=== PATIENT | male | born 1955 | race Caucasian/White ===

== ENCOUNTER 2023-08-24 15:33 | Inpatient (IN) | payer OTHER, SELFPAY ==
[2023-08-24 12:00] VITALS: BP 144/87
--- NOTE | 2023-08-24 12:25 | ED.GENMED ---
History of Present Illness
General
Chief Complaint: Abdominal Symptoms
Source: patient
Exam Limitations: none
Time Seen by Provider: 08/24/23 12:18
Travel History
Have you had any contact with someone who has COVID-19?: No
Do you have any symptoms of coronavirus? Fever > 100 degrees, chills, cough, shortness of breath, sore throat, loss of taste or smell, muscle aches, or headache?: No
History of Present Illness
History of Present Illness:
68-year-old male presents with mid abdominal pain with vomiting onset this morning. He states he had a bloody Montse's and a cheese steak for dinner last night and developed abdominal pain. The pain does not radiate to his back. He denies any chest
pain or shortness of breath. No diarrhea. No blood in the stool. No fever. No other complaints at this time. No prior abdominal surgical history
Phy Exam
Physical Exam
Physical Exam:
General: Well-appearing male no acute respiratory distress
HEENT: Normocephalic atraumatic neck is supple
Heart: Regular rate and rhythm no murmurs
Lungs: Clear to auscultation bilaterally no wheezing
Abdomen: Soft, tender to the mid abdomen and right upper quadrants. No guarding or rebound normal bowel sounds nondistended no costovertebral angle tenderness
Extremities: No cyanosis or edema
Skin: Warm no rashes
Course
Orders/Labs/Results
Orders:
Orders
08/24/23 12:24
0.9% Sodium Chloride 1000 ml [Nss] 1,000 ml IV BOLUS
Famotidine [Pepcid] 20 mg IV NOW STA
Ondansetron Injectable [Zofran] 4 mg IV NOW STA
US Abdomen Complete/Upper Urgent
Comment:
Reason For Exam: abdominal pain
08/24/23 12:30
Complete Blood Count/With Diff Urgent
Comprehensive Metabolic Panel Urgent
Lipase Urgent
08/24/23 13:16
0.9% Sodium Chloride 1000 ml [Nss] 1,000 ml IV BOLUS
HYDROmorphone [Dilaudid] 1 mg IV NOW STA
Abnormal Lab Results
08/24/23
12:30
WBC 17.9 H 10^3/uL
(4.8-10.8)
RDW 15.9 H %
(11.5-14.5)
Abs Immat Gran (auto) 0.2 H 10^3/uL
(0-0.05)
Absolute Neuts (auto) 16.7 H 10^3/uL
(1.4-6.5)
Absolute Lymphs (auto) 0.4 L 10^3/uL
(1.2-3.4)
Immature Gran % 0.8 H %
(0-0.5)
Neutrophils % 93.1 H %
(42.2-75.2)
Lymphocytes % 2.3 L %
(20.5-51.1)
BUN 27 H mg/dl
(9-20)
Glucose 176 H mg/dl
(70-99)
Total Bilirubin 3.6 H mg/dl
(0.2-1.3)
AST 240 H U/L
(17-59)
ALT 207 H U/L
(0-50)
Alkaline Phosphatase 554 H U/L
(38-126)
Lipase > 4000 H* U/L
(23-300)
08/24/23 12:30
08/24/23 12:30
Vital Signs
Initial and Last Documented VS:
Initial Vital Signs
Temp Pulse Resp BP Pulse Ox
97.7 F 117 18 144/87 97
08/24/23 12:00 08/24/23 12:00 08/24/23 12:00 08/24/23 12:00 08/24/23 12:00
Last Documented Vital Signs
Temp Pulse Resp BP Pulse Ox
97.7 F 100 16 160/69 94
08/24/23 12:00 08/24/23 13:22 08/24/23 13:22 08/24/23 13:22 08/24/23 13:22
MDM/Problems Addressed
Differential Diagnosis Includes:
Abdominal pain. Differential could include gastritis versus biliary colic versus pancreatitis versus viral illness
Check labs including lipase ultrasound ordered Zofran Pepcid fluids given.
*Critical Care Note
Total Time (30-74mins, 75-104mins- exclusive of procedures): Not Applicable
Update Note
Update Note:
Workup demonstrates white blood cell count of 17.9 bilirubin of 3.6 with transaminases elevated. The lipase is over 4000 as well. No signs of cholecystitis on all consider choledocholithiasis. Fluids ordered pain medicine ordered. GI aware admit
to hospital service
ED Attending Note
-
Portions of this chart may have been created with voice recognition software.� Occasional wrong word or��sound alike� substitutions may have occurred due to the inherent limitations of voice recognition software.
Discharge Plan
Departure
Patient Disposition: Admit
Date of Disposition: 08/24/23
Time of Disposition: 14:01
Admit to: Med/Surg and Telemetry
Presentation/result/management discussed w/ accepting MD/DO: Hospitalist
Discharge Problem:
Acute pancreatitis
Referrals:
Richard Burdick DO [Family Provider] -
Interventions
Interventions:
*Risk Screen - Suicide Last Done: 08/24/23 11:57
*General Assessment Last Done: 08/24/23 11:57
*Neglect/Abuse Screening Last Done: 08/24/23 11:57
*ED COVID-19 Vaccine History Last Done: 08/24/23 11:57
ZA-Ebckmk-Fupvulittf Assessment Last Done: 08/24/23 12:23
[2023-08-24] MEDS: ZOFRAN 4 MG IV (12:33)
[2023-08-24] MEDS: PEPCID 20 MG IV (12:33)
[2023-08-24] MEDS: NSS 1000 IV ×2 (12:34→14:24)
[2023-08-24 12:43] LABS: % Basophils 0.2 % (0-2); % Eosinophils 0.1 % (0-6); % Immature Granulocytes 0.8 % (0-0.5); % Lymphocytes 2.3 % (20.5-51.1); % Monocytes 3.5 % (1.7-9.3); % Neutrophils 93.1 % (42.2-75.2); Absolute Immature Granulocytes 0.2 10^3/uL (0-0.05); Absolute Lymphocytes 0.4 10^3/uL (1.2-3.4); Absolute Monocytes 0.6 10^3/uL (0.1-0.6); Absolute Neutrophils 16.7 10^3/uL (1.4-6.5); Hematocrit 44.1 % (39.0-52.0); Hemoglobin 15.3 g/dL (13.0-18.0); Mean Corp Hgb Conc. 34.7 g/dL (33.0-37.0); Mean Corpuscular Hgb 29.3 pg (27.0-31.0); Mean Corpuscular Volume 84.3 fL (80.0-94.0); Mean Platelet Volume 9.5 fL (7.4-10.4); Nucleated Red Blood Cells % 0 % (-); Platelet Count 162 10^3/uL (130-400); Red Blood Cell Count 5.23 10^6/uL (4.70-6.10); Red Cell Dist. Width 15.9 % (11.5-14.5); White Blood Cell Count 17.9 10^3/uL (4.8-10.8)
[2023-08-24 12:57] LABS: ALT (SGPT) 207 U/L (0-50); AST (SGOT) 240 U/L (17-59); Albumin 4.2 g/dl (3.5-5.0); Alkaline Phosphatase 554 U/L (38-126); Blood Urea Nitrogen 27 mg/dl (9-20); Calcium 8.9 mg/dl (8.4-10.2); Carbon Dioxide 23 mmol/L (22-30); Chloride 107 mmol/L (98-107); Glucose 176 mg/dl (70-99); Potassium 4.3 mmol/L (3.5-5.1); Sodium 141 mmol/L (135-145); Total Bilirubin 3.6 mg/dl (0.2-1.3); Total Protein 7.5 g/dl (6.3-8.2); eGFR > 60.00
[2023-08-24 13:11] LABS: Lipase > 4000 U/L (23-300)
[2023-08-24 13:22] VITALS: BP 160/69
--- NOTE | 2023-08-24 15:14 | HPS.HSE ---
Family Physician
-
Family Physician: Richard Burdick
Chief Complaint
-
abdominal pain
History of Present Illness
68-year-old male with past medical history of hypertension, arthritis, COPD came to the hospital with abdominal pain and nausea vomiting. Patient's symptoms started this morning. Per patient he went to the restaurant overnight and had 2 drinks of
bloody Montse along with cheese steak. He then started developing abdominal pain. Denies any fever/chills. Denies any chest pain, shortness of breath.
Medical History
Past Medical History
Past Medical History: Reports COPD, HTN, Hypercholesterolemia and Other (Osteoarthritis)
Past Surgical History: Reports None
Social History
Tobacco: Non-smoker
Alcohol: Occasional
Drug: None
Family History
Family History: Not pertinent
Allergies / Home Medications
Allergies reflects when Allergies were last updated in [facility].
Home Medications with original date entered in [facility]
Allergy/Medication List:
Allergies
Allergy/AdvReac Type Severity Reaction Status Date / Time
No Known Allergies Allergy Verified 08/24/23 11:57
Home Medications
albuterol sulfate 90 mcg/actuation aerosol inhaler (ProAir HFA) 2 puff inhalation R QIDPRN PRN sob 08/24/23
atorvastatin 10 mg tablet (Lipitor) 10 mg PO QPM 08/24/23
fluticasone fur. 200 mcg-umeclid 62.5 mcg-vilant 25 mcg inhalat.powder (Trelegy Ellipta) 1 inh inhalation R DAILY 08/24/23
ibuprofen 200 mg tablet (Advil) 400 mg PO DAILY 08/24/23
ibuprofen 200 mg tablet (Advil) 600 mg PO HS 08/24/23
lisinopril 10 mg tablet 10 mg PO DAILY 08/24/23
Review of Systems
-
History Source: Patient
A 12 point ROS was completed and negative except as noted: Yes
Abdomen/GI: Reports Abdominal Pain, Nausea and Vomiting
Physical Exam
Vital Signs
Vital Signs
Temp Pulse Resp BP Pulse Ox
97.7 F 100 16 160/69 94
08/24/23 12:00 08/24/23 13:22 08/24/23 13:22 08/24/23 13:22 08/24/23 13:22
Physical Exam
General: Well Nourished and No Apparent Distress
HEENT: Anicteric and Moist mucous membranes
Respiratory: Clear and Non Labored Respirations; No Wheezes
Cardiac: S1/S2, Regular Rhythm and Tachycardia
Breast: Deferred by me
GI: Soft, Non Distended and Tender
Rectal: Deferred by Provider
Genito-urinary: No Nguyen
Musculoskeletal: No Edema
Neuro: Awake, Alert, Oriented and AO x 3
Psych: Calm and Intact Judgment/Insight
Laboratory Results
-
08/24/23 12:30
08/24/23 12:30
Laboratory Results
Total Bilirubin 3.6 mg/dl (0.2-1.3) H 08/24/23 12:30
AST 240 U/L (17-59) H 08/24/23 12:30
ALT 207 U/L (0-50) H 08/24/23 12:30
Alkaline Phosphatase 554 U/L (38-126) H 08/24/23 12:30
Lipase > 4000 U/L (23-300) H* 08/24/23 12:30
Data Reviewed
-
Lab Data: Labs Reviewed by me and Discussed with Patient
Impression/Plan
-
Abdominal pain, nausea vomiting likely secondary to pancreatitis
Suspect also related however could also be from NSAIDs, alcohol
Suspect sepsis (leukocytosis, tachycardia) secondary to pancreatitis
Concern for obstructive stone
Start lactated Ringer's
N.p.o.
Check MRI/MRCP
GI consult
Ultrasound noted with gallstones. No signs of cholecystitis and biliary dilation
Check EKG for QTc
Zofran
Lipase elevated
Check direct bili
Check blood culture, start antibiotics
History of hypertension
Hold lisinopril
Hydralazine as needed
Osteoarthritis
Hold ibuprofen, per patient he takes about 1200 mg Advil daily.
COPD
Not in exacerbation
Continue with home inhaler
Hyperlipidemia
Hold statin
DVT ppx
Lovenox
Full code
I spent a total of 78 minutes with the patient or on the floor. More than 50% of this time involved counseling and coordination of care.
[2023-08-24 15:23] VITALS: BP 158/88
[2023-08-24] MEDS: ZOSYN 50 IV ×2 (16:28→22:23)
--- NOTE | 2023-08-24 16:31 | CON.GI ---
Addendum entered and electronically signed by Lana Daly MD 08/24/23 19:19:
I saw and examined the patient.
The COMMUNICATION AND OUTREACH MANAGER or PA's note was reviewed and I agree with the note.
Comment: 68-year-old male past medical history as below here with nausea, vomiting, diarrhea, fevers for 3 to 4 weeks, worse this morning after having cheese steak and bloody Montse last night he was having ongoing vomiting. Found to have a white
blood cell count 17.9, lipase more than 4000, bilirubin 3.6, direct bilirubin 2.7, AST 240, ALT 207, alk phos 554, abdominal imaging with cholelithiasis without cholecystitis, fatty liver, splenomegaly. This is all consistent with likely biliary
pancreatitis possibly worsened with alcohol. He denies any regular alcohol use. I suspect the pain he was having the last 3 or 4 weeks was related to biliary colic. There is concern as well about cholangitis given the history of fever,
leukocytosis, elevated bilirubin.
Agree with broad-spectrum antibiotics, IV fluids which I increased lactate Ringer's to 250, monitor I's and O's, n.p.o., MRI with MRCP pending to evaluate for stone, blood cultures pending. Will need surgery consult eventually as well as will need
cholecystectomy. Fatty liver workup outpatient.
Please note pain is due to pancreatitis/biliary dz - no indication for EGD as noted below.
Original Note:
Consultation
-
Date/Time Consultation Requested: 08/24/23 1335
Date/Time Consultation Performed: 08/24/23 1630
Requesting Provider: Dr. Price
Performing Provider: Dr. Daly / Natalie Rich PA-C
Reason for Consultation: pancreatitis
Medical History
Chief Complaint / HPI
Chief Complaint: abdominal pain
History of Present Illness:
Vipul is a 68 year old male with a past medical history of HTN, hyperlipidemia, COPD, arthritis and fatty liver who complained of abdominal pain this morning, with nausea and vomiting. He vomited 4 times; no hematemesis or coffee grounds emesis.
No fever, chills. He drank 2 Bloody Montse's and ate a cheesesteak last night. Labs in the ER show lipase >4000 with elevated LFTs (AST 240, ALT 207, alk phos 554, total bili 3.6, direct bili 2.7). He does admit that he has had mildly elevated LFTs in
the past and has been told he had fatty liver. CBC shows leukocytosis with WBC count 17.9, Hgb 15.3, MCV 84.3, platelets 162. Blood cultures drawn, pending. Imaging studies in the ER include abdominal ultrasound which showed gallstones without
evidence of acute cholecystitis, no intra or extrahepatic biliary ductal dilatation, CBD measures 5mm, and pancreas not visualized on US due to overlying bowel gas. Fatty liver without focal liver lesion and splenomegaly also noted on US. MRI/MRCP
has been ordered to rule out CBD stone, results pending.
This is his first episode of pancreatitis. He denies any new medications. He does drink alcohol, 3-4 beers 1-2 times a week. He does not smoke and denies drug use. He does admit to regular NSAID use, 800mg a day of ibuprofen (200mg QID), for
arthritis pain. He gets occasional heartburn/reflux, and takes OTC Zantac PRN, which helps. He has never had an endoscopy. He has no bowel complaints, denies diarrhea, constipation, black or bloody stools. He had a colonoscopy 3-[address] [facility], reportedly normal. His family history is significant for his father had pancreatitis.
Past Medical History
Past Medical History: COPD, HTN, Hypercholesterolemia and Other (arthritis, fatty liver)
Past Surgical History: None
Social History
Tobacco: Non-Smoker
Alcohol: Other (up to 8 beers/week)
Drug: None
Family History
Family History: Other (father had pancreatitis. He denies any family history of GI malignancies.)
Allergies / Home Medications
Allergy/AdvReac Type Severity Reaction Status Date / Time
No Known Allergies Allergy Verified 08/24/23 11:57
Medication Instructions Recorded
albuterol sulfate 90 mcg/actuation 2 puff inhalation R QIDPRN PRN sob 08/24/23
aerosol inhaler (ProAir HFA)
atorvastatin 10 mg tablet (Lipitor) 10 mg PO QPM 08/24/23
fluticasone fur. 200 mcg-umeclid 1 inh inhalation R DAILY 08/24/23
62.5 mcg-vilant 25 mcg
inhalat.powder (Trelegy Ellipta)
ibuprofen 200 mg tablet (Advil) 400 mg PO DAILY 08/24/23
ibuprofen 200 mg tablet (Advil) 600 mg PO HS 08/24/23
lisinopril 10 mg tablet 10 mg PO DAILY 08/24/23
Review of Systems
-
History Source: Patient
All other systems: A 12 pt ROS was Negative except as stated above in HPI
Vital Signs
Temp Pulse Resp BP Pulse Ox
97.7 F 89 16 158/88 95
08/24/23 12:00 08/24/23 15:23 08/24/23 15:23 08/24/23 15:23 08/24/23 15:23
Physical Exam
Exam
General: Well Developed, Well Nourished and No Apparent Distress
Respiratory: Clear
Cardiac: Regular Rhythm
GI: Soft, Normal Bowel Sounds, Tender (+epigastric tenderness) and Distended
Skin: Warm, Dry and Rash
Neuro: AO x 3
Psych: Calm
Results
WBC 17.9 10^3/uL (4.8-10.8) H 08/24/23 12:30
Hgb 15.3 g/dL (13.0-18.0) 08/24/23 12:30
Hct 44.1 % (39.0-52.0) 08/24/23 12:30
MCV 84.3 fL (80.0-94.0) 08/24/23 12:30
Plt Count 162 10^3/uL (130-400) 08/24/23 12:30
Absolute Neuts (auto) 16.7 10^3/uL (1.4-6.5) H 08/24/23 12:30
Sodium 141 mmol/L (135-145) 08/24/23 12:30
Potassium 4.3 mmol/L (3.5-5.1) 08/24/23 12:30
Chloride 107 mmol/L (98-107) 08/24/23 12:30
Carbon Dioxide 23 mmol/L (22-30) 08/24/23 12:30
BUN 27 mg/dl (9-20) H 08/24/23 12:30
Creatinine 1.3 mg/dL (0.7-1.3) 08/24/23 12:30
Calcium 8.9 mg/dl (8.4-10.2) 08/24/23 12:30
Total Bilirubin 3.6 mg/dl (0.2-1.3) H 08/24/23 12:30
AST 240 U/L (17-59) H 08/24/23 12:30
ALT 207 U/L (0-50) H 08/24/23 12:30
Alkaline Phosphatase 554 U/L (38-126) H 08/24/23 12:30
Lipase > 4000 U/L (23-300) H* 08/24/23 12:30
Diagnostic Image Results:
US Abdomen, 08/24/23:
1.� Cholelithiasis without sonographic evidence for acute cholecystitis.
2. Increased echogenicity in the liver, compatible with underlying hepatocellular disease, which most commonly relates to fatty infiltration of the liver.
3. Splenomegaly.
Prior GI Procedures:
EGD: never
Colonoscopy: 3-4 years ago at [facility], reportedly normal
Assessment / Plan
-
68 year old male with HTN, hyperlipidemia, COPD, arthritis and fatty liver c/o abdominal pain with nausea and vomiting. He vomited 4 times; no hematemesis or coffee grounds emesis. No fever, chills. He drank 2 Bloody Montse's and ate a cheesesteak
last night. Labs in the ER show lipase >4000 with elevated LFTs (AST 240, ALT 207, alk phos 554, total bili 3.6, direct bili 2.7). He does admit that he has had mildly elevated LFTs in the past and has been told he had fatty liver. CBC shows
leukocytosis with WBC count 17.9, Hgb 15.3, MCV 84.3, platelets 162. Blood cultures drawn, pending. Imaging studies in the ER include abdominal ultrasound which showed gallstones without evidence of acute cholecystitis, no intra or extrahepatic
biliary ductal dilatation, CBD measures 5mm, and pancreas not visualized on US due to overlying bowel gas. Fatty liver without focal liver lesion and splenomegaly also noted on US. MRI/MRCP has been ordered to rule out CBD stone, results pending.
This is his first episode of pancreatitis. He denies any new medications. He does drink alcohol, 3-4 beers 1-2 times a week. He does not smoke and denies drug use. He does admit to regular NSAID use, 800mg a day of ibuprofen (200mg QID), for
arthritis pain. He gets occasional heartburn/reflux, and takes OTC Zantac PRN, which helps. He has never had an endoscopy. No dysphagia, odynophagia. He states he has lost about 40 pounds in the past 3.5 months, intentionally, with improved diet. He
has no bowel complaints, denies diarrhea, constipation, black or bloody stools. He had a colonoscopy 3-4 years ago at [facility], reportedly normal. His family history is significant for his father had pancreatitis.
Acute pancreatitis, possible etiologies include gallstones vs alcohol
-lipase >4000
-elevated LFTs, concern for possible CBD stone
-MRI/MRCP pending
-NPO
-IV fluids, lactated ringers ordered at 250ml/hr
-antiemetics and pain management as per hospitalist
Other etiologies of the upper abdominal pain including gastritis/PUD related to NSAID use, EtOH
-consider endoscopy, inpatient vs outpatient
Other medical problems managed as per hospitalist.
We will follow.
-
-
Thank you for consultation and allowing me to participate in the patient's care. Please call the [facility] extension specialist GI physician during the after hours with any questions or concerns.
[2023-08-24 16:35] LABS: Direct Bilirubin 2.7 mg/dl (0.0-0.4)
[2023-08-24 17:15] VITALS: BP 160/101; BMI 41.8
[2023-08-24] MEDS: LR 1000 IV (18:00)
[2023-08-24] MEDS: LOVENOX 40 MG SC (19:22)
[2023-08-24] MEDS: SYMBICORT 160/4.5 MCG INHALER 2 PUFF INH (20:15)
[2023-08-24] MEDS: DILAUDID 0.5 MG IV (20:25)
[2023-08-24 23:55] VITALS: BP 152/74
[2023-08-25] VITALS (7 sets, daily range): BP systolic 122–157; BP diastolic 62–98
[2023-08-25] MEDS: LR 1000 IV ×4 (00:40→19:19)
[2023-08-25] MEDS: DILAUDID 0.5 MG IV ×3 (00:43→10:13)
[2023-08-25] MEDS: ZOSYN 50 IV ×4 (04:27→22:27)
[2023-08-25] MEDS: SYMBICORT 160/4.5 MCG INHALER 2 PUFF INH ×2 (07:34→19:38)
[2023-08-25] MEDS: SPIRIVA RESPIMAT 2.5 MCG 2 PUFF INH (07:34)
[2023-08-25 08:38] LABS: % Basophils 0.1 % (0-2); % Eosinophils 0.1 % (0-6); % Immature Granulocytes 0.9 % (0-0.5); % Lymphocytes 2.7 % (20.5-51.1); % Monocytes 4.5 % (1.7-9.3); % Neutrophils 91.7 % (42.2-75.2); Absolute Immature Granulocytes 0.2 10^3/uL (0-0.05); Absolute Lymphocytes 0.6 10^3/uL (1.2-3.4); Absolute Neutrophils 20.5 10^3/uL (1.4-6.5); Hematocrit 42.3 % (39.0-52.0); Hemoglobin 13.7 g/dL (13.0-18.0); Mean Corp Hgb Conc. 32.4 g/dL (33.0-37.0); Mean Corpuscular Hgb 27.9 pg (27.0-31.0); Mean Corpuscular Volume 86.2 fL (80.0-94.0); Mean Platelet Volume 9.4 fL (7.4-10.4); Nucleated Red Blood Cells % 0 % (-); Platelet Count 131 10^3/uL (130-400); Red Blood Cell Count 4.91 10^6/uL (4.70-6.10); Red Cell Dist. Width 16.2 % (11.5-14.5); White Blood Cell Count 22.3 10^3/uL (4.8-10.8)
[2023-08-25 09:00] LABS: ALT (SGPT) 208 U/L (0-50); AST (SGOT) 146 U/L (17-59); Albumin 3.7 g/dl (3.5-5.0); Alkaline Phosphatase 453 U/L (38-126); Blood Urea Nitrogen 25 mg/dl (9-20); Calcium 8.1 mg/dl (8.4-10.2); Carbon Dioxide 23 mmol/L (22-30); Chloride 107 mmol/L (98-107); Estimated Creatinine Clearance 78 ml/min; Glucose 119 mg/dl (70-99); Potassium 3.9 mmol/L (3.5-5.1); Sodium 140 mmol/L (135-145); Total Bilirubin 4.3 mg/dl (0.2-1.3); Total Protein 6.7 g/dl (6.3-8.2); eGFR > 60.00
[2023-08-25 09:12] LABS: Lipase > 4000 U/L (23-300)
[2023-08-25] MEDS: ZESTRIL 10 MG PO (10:12)
--- NOTE | 2023-08-25 11:14 | W.PN.HOSP.TC ---
Today's Communication/Plan
-
monitor vitals
see plan
clears
CT abdomen
cw abx
monitor lipase
cw LR
Assessment / Plan
Assessment / Plan
General: Well Nourished and No Apparent Distress
HEENT: Anicteric and Moist mucous membranes
Respiratory: Clear and Non Labored Respirations; No Wheezes
Cardiac: S1/S2, Regular Rhythm and Tachycardia
Breast: Deferred by me
GI: Soft, Non Distended and Tender
Rectal: Deferred by Provider
Genito-urinary: No Nguyen
Musculoskeletal: No Edema
Neuro: Awake, Alert, Oriented and AO x 3
Psych: Calm and Intact Judgment/Insight
Abdominal pain, nausea vomiting likely secondary to pancreatitis
Suspect also related however could also be from NSAIDs, alcohol
Suspect sepsis (leukocytosis, tachycardia) secondary to pancreatitis
MRI without CBD stone; does concern for possible chronic or subacute cholecystitis with possible underlying mass; Surgery following; pending CT abdomen
cw lactated Ringer's
on clears
GI following
Zofran
Lipase elevated
direct bili high; elevated LFT's,alk phos
Check blood culture pending, cw antibiotics
monitor leukocytosis
History of hypertension
Hold lisinopril
Hydralazine as needed
Osteoarthritis
Hold ibuprofen, per patient he takes about 1200 mg Advil daily.
COPD
Not in exacerbation
Continue with home inhaler
Hyperlipidemia
Hold statin
DVT ppx
Lovenox
Full code
Anticipated Discharge: 24 - 48 hours
Subjective/Interval History
-
Date of Service: August 25, 2023
has nausea
Objective Data
-
Labs:
Laboratory Results
08/25/23
08:21
WBC 22.3 H
Hgb 13.7
Hct 42.3
Plt Count 131
Sodium 140
Potassium 3.9
Chloride 107
Carbon Dioxide 23
BUN 25 H
Creatinine 1.3
Glucose 119 H
Calcium 8.1 L
Total Bilirubin 4.3 H
AST 146 H
ALT 208 H
Alkaline Phosphatase 453 H
Vital Signs:
Vital Signs
Temp Pulse Resp BP Pulse Ox
98.7 F 94 18 135/77 95
08/25/23 07:39 08/25/23 10:12 08/25/23 07:39 08/25/23 10:12 08/25/23 07:39
I&O
08/24/23 08/25/23 08/26/23
06:59 06:59 06:59
Intake Total 0 / 0 2700 / 2700
Balance 0 / 0 2700 / 2700
--- NOTE | 2023-08-25 11:45 | W.PN.GI.CBS2 ---
Today's Communication / Plan
-
surgery c/s, adv to clears, trend lfts, ivf
Assessment / Plan
-
�68-year-old male past medical history as below here with nausea, vomiting, diarrhea, fevers for 3 to 4 weeks, worse this morning after having cheese steak and bloody Montse last night he was having ongoing vomiting.� Found to have a white blood cell
count 17.9, lipase more than 4000, bilirubin 3.6, direct bilirubin 2.7, AST 240, ALT 207, alk phos 554, abdominal imaging with cholelithiasis without cholecystitis, fatty liver, splenomegaly.� This is all consistent with likely biliary pancreatitis
possibly worsened with alcohol. He denies any regular alcohol use.� I suspect the pain he was having the last 3 or 4 weeks was related to biliary colic.� He has also lost 60 lb in 6 weeks (intentionally) and the rapid weight loss can account for
gallstones.
Underwent MRI/MRCP last pm: 'Mild acute uncomplicated interstitial edematous pancreatitis. Cholelithiasis with irregular gallbladder wall thickening/exophytic soft tissue and edema suspicious for neoplasm. Underlying acute cholecystitis not
definitely excluded. Consider initial further evaluation with dedicated HIDA scan if there is clinical concern for acute cholecystitis.'
Recommendations:
- I ordered strict I+O
- Continue IV fluids LR 250
- I advanced him to clear liquid diet
- Trend LFTs
- I d/w Dr. Cobb recommend surgery consult - I placed consult and d/w Dr. Arrieta
- Follow up blood cultures, suspect leukocytosis and fever due to pancreatitis
- Fatty liver work up outpatient
Subjective
Subjective
Date of Service: August 25, 2023
Pain better
Last pain meds 6am
Required 2 doses yesterday, then midnight and 6am
No output recorded
Objective
Data Reviewed
Laboratory Data:
Laboratory Results
08/25/23 08:21
08/25/23 08:21
Laboratory Results
Total Bilirubin 4.3 mg/dl (0.2-1.3) H 08/25/23 08:21
AST 146 U/L (17-59) H 08/25/23 08:21
ALT 208 U/L (0-50) H 08/25/23 08:21
Alkaline Phosphatase 453 U/L (38-126) H 08/25/23 08:21
Lipase > 4000 U/L (23-300) H* 08/25/23 08:21
Vital Signs and I&O:
Vital Signs
Temp Pulse Resp BP Pulse Ox
98.7 F 94 18 135/77 95
08/25/23 07:39 08/25/23 10:12 08/25/23 07:39 08/25/23 10:12 08/25/23 08:55
I&O
08/24/23 08/25/23 08/26/23
06:59 06:59 06:59
Intake Total 0 / 0 2700 / 2700
Balance 0 / 0 2700 / 2700
Physical Exam
Physical Exam
GI: Non Distended and Non Tender
--- NOTE | 2023-08-25 11:54 | CON.GS ---
Addendum entered and electronically signed by Angelito Arrieta MD 08/25/23 12:31:
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 Agree with documented consult as below.
Brief HPI
68-year-old male who states he was in his usual baseline state of health until this past June when he had a bout of postprandial epigastric/right upper quadrant abdominal pain. He states that he had been feeling well since this episode but
decided to change his dietary habits which have resulted in approximately 60 pound weight loss since. 2 days ago he developed a recurrent bout of abdominal pain initially left-sided but it migrated to the epigastrium and right upper quadrant.
Nausea and vomiting. A little bit before his symptoms or around the same time he began noticing dark tea colored urine but no change in his bowels. No fevers chills or sweats.
Past medical history notable for COPD, hypertension, hypercholesterolemia. He denies any past abdominal surgical history.
Afebrile, vital signs stable
No acute distress, awake alert oriented x 3.
Scleral icterus noted and mild jaundice of the skin.
Abdomen obese, soft, nondistended. Mild tenderness palpation epigastrium and right upper quadrant but no rebound rigidity or guarding. There is a palpable mass in the right upper quadrant at the costal margin likely corresponding to the region of
his gallbladder. Some tenderness over this area but negative Dubon's.
Laboratory testing notable for white blood cell count of 22.3, hemoglobin is 13.7. Platelet count normal 131. Lipase remains greater than 4000. Bilirubin 4.3 with direct 2.7. AST ALT and alkaline phosphatase all elevated as well.
Ultrasound imaging personally reviewed identifying gallstones, no biliary ductal dilation. Common bile duct 5 mm. Fatty infiltration of the liver and splenomegaly. Imaging limited by patient's body habitus
MRI/MRCP also personally reviewed as well as radiologist report. There is diffuse and rather impressive thickening of the gallbladder and a exophytic masslike pattern particularly around the fundus and liver margin. No biliary ductal dilation.
Gallbladder is full of small stones. Pancreatic edema. Normal pancreatic duct.
Assessment/plan: 68-year-old male with acute pancreatitis, probable biliary mediated. Jaundice but within limits of MR imaging no evidence of choledocholithiasis. MR imaging suggestive of chronic or subacute cholecystitis with possible underlying
mass versus chronic inflammatory process. Gallbladder lumen appears completely occupied by stones.
Recommend further imaging with CT abdomen/pelvis with contrast to see if can better define inflammatory versus possible malignant process of the gallbladder.
Continue bowel rest, IV fluid hydration and supportive care for pancreatitis
Continue Zosyn for empiric biliary coverage
Repeat labs tomorrow
Further recommendations regarding management of gallstones and gallbladder pending CT imaging results. Based on MRI appearance cholecystectomy would likely be very challenging and high surgical risk for complication to surrounding viscera. If
there is ongoing concern for underlying malignancy may consider IR guided biopsy.
Reviewed with patient.
Will follow
Original Note:
Consultation
-
Date/Time Consultation Requested: 08/25/23 1114
Requesting Provider: Addy
Performing Provider: Jeffery Arrieta
Medical History
-
Chief Complaint: Abdominal pain
History of Present Illness:
This is a 68 yo male with a history of HTN, COPD and obesity who presented with abdominal pain through the ED to the upper abdomen. He notes that he has had intermittent and self resolving abdominal pain since June which has usually been short
in duration. He has been trying to loose weight and has been eating lightly with a reported weight loss of 60 pounds over the past 6 weeks. On the night prior to presentation, he did have a large meal of cheese steak with a bloody alyce and awakened
in the morning with left sided abdominal pain crossing over the the right. He notes nausea and vomiting with this pain causing him to present for evaluation through the ED. He notes that over the past few days he has had tea colored urine but denies
acholic stools. He does have noted jaundice and scleral icterus. He is currently more comfortable than on day of presentation without continued nausea. He has generalized mild tenderness to the LUQ and focal tenderness to the RUQ. He has been
afebrile. He does note that he has an upcoming prostate procedure/biopsy at [facility] and is eager to have this all dealt with prior to his planned procedure.
Past Medical History
Past Medical History: COPD, HTN and Hypercholesterolemia
Past Surgical History: None
Social History
Tobacco: Non-Smoker
Alcohol: Occasional
Family History
Family History: Reviewed & Not Pertinent
Allergies / Home Medications
Allergy/AdvReac Type Severity Reaction Status Date / Time
No Known Allergies Allergy Verified 08/24/23 11:57
Medication Instructions Recorded Confirmed Type
albuterol sulfate 90 mcg/actuation 2 puff inhalation R QIDPRN PRN sob 08/24/23 08/24/23 History
aerosol inhaler (ProAir HFA)
atorvastatin 10 mg tablet (Lipitor) 10 mg PO QPM High Cholesterol 08/24/23 08/24/23 History
fluticasone fur. 200 mcg-umeclid 1 inh inhalation R DAILY COPD 08/24/23 08/24/23 History
62.5 mcg-vilant 25 mcg
inhalat.powder (Trelegy Ellipta)
ibuprofen 200 mg tablet (Advil) 400 mg PO DAILY Pain 08/24/23 08/24/23 History
ibuprofen 200 mg tablet (Advil) 600 mg PO HS Pain 08/24/23 08/24/23 History
lisinopril 10 mg tablet 10 mg PO DAILY Blood Pressure 08/24/23 08/24/23 History
Review of Systems
-
History Source: Patient
All other systems: Negative unless noted
A 10 point review of systems was completed, and was negative except as per HPI.
Physical Exam
Vital Signs
Temp Pulse Resp BP Pulse Ox
98.7 F 94 18 135/77 95
08/25/23 07:39 08/25/23 10:12 08/25/23 07:39 08/25/23 10:12 08/25/23 08:55
08/24/23 08/25/23 08/26/23
06:59 06:59 06:59
Actual Weight 133.9 kg
Body Mass Index (BMI) 41.8
Lab Results
08/25/23 08:21
08/25/23 08:21
WBC 22.3 10^3/uL (4.8-10.8) H 08/25/23 08:21
Hgb 13.7 g/dL (13.0-18.0) 08/25/23 08:21
Hct 42.3 % (39.0-52.0) 08/25/23 08:21
Plt Count 131 10^3/uL (130-400) 08/25/23 08:21
Abs Immat Gran (auto) 0.2 10^3/uL (0-0.05) H 08/25/23 08:21
Neutrophils % 91.7 % (42.2-75.2) H 08/25/23 08:21
Physical Exam
General: Well Developed and No Apparent Distress
HEENT: Normocephalic and Moist Mucous Membranes
Respiratory: Non Labored Respirations
GI: Soft and Tender (BLUQ, focal tenderness to the mid RUQ)
Skin: Warm and Dry
Neuro: Awake, Alert and AO x 3
Psych: Calm
Data Reviewed
-
Ultrasound: Image Personally Visualized and interpreted, Report Reviewed by me, Discussed with Physician and Discussed with Patient
MRI: Image Personally Visualized and interpreted, Report Reviewed by me, Discussed with Physician and Discussed with Patient
Labs: Labs Reviewed by me, Discussed with Physician and Discussed with Patient
Assessment / Plan
-
68 yo male presenting with upper abdominal pain with n/v and jaundice. Being followed by GI for pancreatitis. Likely gallstone related although ETOH and malignancy remain in the differential. US reviewed with cholelithiasis noted. F/U MRCP with
abnormal gallbladder findings of irregular gallbladder wall thickening/exophytic soft tissue and edema and pancreatic edema, no choledocholithiasis noted on imaging. There is suspicion for neoplasm, however, unclear from MR imaging. Bilirubin with
slight rise since presentation. Increasing leukocytosis. Pain thus far well controlled/improved. No further n/v today. AFVSS.
Plan:
Check CT with contrast to further evaluate given abnormal MR findings
Trend labs
Continue IVF
Clear liquids as per GI
Analgesics/antiemetics prn
No immediate surgery planned given pancreatic inflammation and possible malignancy, further surgical recs pending CT study
[2023-08-25] MEDS: OMNIPAQUE 50 ML PO (13:02)
[2023-08-25] MEDS: ZOFRAN 4 MG IV (14:16)
[2023-08-25] MEDS: LOVENOX 40 MG SC (17:12)
[2023-08-25] MEDS: LR IV ×2 (17:14→18:40)
[2023-08-25] MEDS: LOPRESSOR 5 MG IV ×2 (18:25→20:21)
--- NOTE | 2023-08-25 18:33 | PTCARENOTE ---
Dr. Cobb made aware pt. HR in the 130s, and b/p 150/78. Order for EKG obtained. EKG tiger text to Dr. Cobb. Pt. asymptomatic, no c/o pain at this time. Orders placed for IV Lopressor and administered as ordered. Will pass on to on coming shift
nurse.
[2023-08-25] MEDS: TYLENOL 500 MG PO (20:25)
[2023-08-25 23:13] LABS: % Basophils 0.2 % (0-2); % Eosinophils 0.1 % (0-6); % Immature Granulocytes 1.3 % (0-0.5); % Lymphocytes 3.4 % (20.5-51.1); % Monocytes 5.3 % (1.7-9.3); % Neutrophils 89.7 % (42.2-75.2); Absolute Basophils 0.1 10^3/uL (0-0.2); Absolute Immature Granulocytes 0.3 10^3/uL (0-0.05); Absolute Lymphocytes 0.9 10^3/uL (1.2-3.4); Absolute Monocytes 1.5 10^3/uL (0.1-0.6); Absolute Neutrophils 24.3 10^3/uL (1.4-6.5); Hematocrit 37.5 % (39.0-52.0); Hemoglobin 12.6 g/dL (13.0-18.0); Mean Corp Hgb Conc. 33.6 g/dL (33.0-37.0); Mean Corpuscular Hgb 28.3 pg (27.0-31.0); Mean Corpuscular Volume 84.3 fL (80.0-94.0); Mean Platelet Volume 9.4 fL (7.4-10.4); Nucleated Red Blood Cells % 0 % (-); Platelet Count 138 10^3/uL (130-400); Red Blood Cell Count 4.45 10^6/uL (4.70-6.10); Red Cell Dist. Width 16.2 % (11.5-14.5); White Blood Cell Count 27.1 10^3/uL (4.8-10.8)
[2023-08-25 23:35] LABS: Blood Urea Nitrogen 23 mg/dl (9-20); Calcium 7.8 mg/dl (8.4-10.2); Carbon Dioxide 22 mmol/L (22-30); Chloride 102 mmol/L (98-107); Estimated Creatinine Clearance 78 ml/min; Glucose 128 mg/dl (70-99); Lactic Acid 1.2 mmol/L (0.7-2.0); Magnesium 1.2 mg/dl (1.6-2.3); Potassium 3.5 mmol/L (3.5-5.1); Sodium 136 mmol/L (135-145); eGFR > 60.00
[2023-08-25 23:45] LABS: NT-proBNP 2130 pg/ml
[2023-08-25] MEDS: MAGNESIUM SULFATE 100 IV (23:49)
--- NOTE | 2023-08-26 00:30 | PTCARENOTE ---
Pts BP 82/52 manual pt stating some dizziness. Repeat BP 92/52. House TV HOST aware. Order for NSS Bolus 500 ml/hr.
--- NOTE | 2023-08-26 02:20 | PTCARENOTE ---
1950: Pts HR 127-130 temp 99.7 BP 139/81- [place] [employer] notified order to place pt on telemetry, 500 mg tylenol and IV lopressor 5 mg given per order. Pts pulse ox 84% on RA- placed on 2 L pox came up to 92%. [place] [employer] aware.
2129: Pts HR continues 120-130s pulse ox 89-90% 2 L NC increased to 4 L. temp 100. [place] [employer] notified order for stat labs and portable cxr.
2299: pts magnesium 1.2- ordered 4 G IV magnesium. HR now in 90s.
[2023-08-26] MEDS: LR IV ×3 (03:36→10:15)
[2023-08-26] MEDS: ZOSYN 50 IV ×4 (03:39→21:39)
[2023-08-26 03:55] VITALS: BP 123/54
[2023-08-26] MEDS: LR 1000 IV ×3 (04:05→21:42)
--- NOTE | 2023-08-26 05:14 | W.PN.UPDATE ---
Update Note
Progress Note Update
late entry:
1944 change of shift RN reporting HR sustaining 120-130s (ST). BP wnl. T 99.7 pulse ox found to be mid 80s room air-->02 2l applied 91%. Pt w/o complaints.
reviewing chart- pt had had issues with increased HR previous shift and received lopressor iv which did not improve HR
Plan:
change from med surg to tele
Add lopressor iv with another dose now.
50mg tylenol po to assess if increase temp causing HR spike
2139 RN reports HR still 120-130. Temp now 100 BP, wnl, But 02 now 4L 92%
Again pt reporting no symptoms
HR likely elevated from temp elevation
Will check labs: cbc, bmp,mag, lactic, bnp, cxr.
Labs obtained around 0 : WBC increased 22-->27, mag 1.2 --> repleted with 4 g iv, BNP 2129 (no baseline and no chf hx, but receiving high rate ivf), lactic normal
start incentive talib for poss atelectasis from pancreatis and cholecystitis
HR now improved to 100, afebrile
pulse ox 97% on 4L--> wean as able
Consider iv lasix if needed, but with pancreatitis and lipase >4000 still needs high rate IVF for now
Though pt denies ETOH prob nurse does report some odd behaviors from pt--> urinating on floor, and poss slight tremors. Watch closely for potential ETOH withdrawal.
[2023-08-26 06:22] LABS: % Basophils 0.2 % (0-2); % Eosinophils 0.2 % (0-6); % Immature Granulocytes 1.4 % (0-0.5); % Lymphocytes 4.2 % (20.5-51.1); % Monocytes 5.3 % (1.7-9.3); % Neutrophils 88.7 % (42.2-75.2); Absolute Eosinophils 0.1 10^3/uL (0-0.7); Absolute Immature Granulocytes 0.3 10^3/uL (0-0.05); Absolute Lymphocytes 0.9 10^3/uL (1.2-3.4); Absolute Monocytes 1.1 10^3/uL (0.1-0.6); Absolute Neutrophils 19.1 10^3/uL (1.4-6.5); Hemoglobin 12.3 g/dL (13.0-18.0); Mean Corp Hgb Conc. 32.4 g/dL (33.0-37.0); Mean Corpuscular Hgb 27.8 pg (27.0-31.0); Mean Platelet Volume 9.4 fL (7.4-10.4); Nucleated Red Blood Cells % 0 % (-); Platelet Count 120 10^3/uL (130-400); Red Blood Cell Count 4.42 10^6/uL (4.70-6.10); Red Cell Dist. Width 16.1 % (11.5-14.5); White Blood Cell Count 21.6 10^3/uL (4.8-10.8)
[2023-08-26 06:37] LABS: ALT (SGPT) 126 U/L (0-50); AST (SGOT) 66 U/L (17-59); Alkaline Phosphatase 320 U/L (38-126); Blood Urea Nitrogen 21 mg/dl (9-20); Calcium 7.5 mg/dl (8.4-10.2); Carbon Dioxide 27 mmol/L (22-30); Chloride 103 mmol/L (98-107); Direct Bilirubin 1.6 mg/dl (0.0-0.4); Estimated Creatinine Clearance 78 ml/min; Glucose 129 mg/dl (70-99); Lipase 978 U/L (23-300); Potassium 3.6 mmol/L (3.5-5.1); Sodium 135 mmol/L (135-145); Total Bilirubin 2.7 mg/dl (0.2-1.3); Total Protein 5.8 g/dl (6.3-8.2); eGFR > 60.00
[2023-08-26 07:22] VITALS: BP 129/70
[2023-08-26] MEDS: ZESTRIL 10 MG PO (08:37)
[2023-08-26] MEDS: ZOFRAN 4 MG IV (09:01)
[2023-08-26] MEDS: SPIRIVA RESPIMAT 2.5 MCG 2 PUFF INH (09:20)
[2023-08-26] MEDS: SYMBICORT 160/4.5 MCG INHALER 2 PUFF INH ×2 (09:20→19:29)
--- NOTE | 2023-08-26 10:23 | W.PN.GS2 ---
Addendum entered and electronically signed by Angelito Arrieta MD 08/26/23 11:44:
Patient seen and examined with nurse practitioner agree with documented progress note with additions noted here.
Patient continues to deny significant symptoms although he is likely trying to be a bit stoic about the situation
Denies abdominal pain, denies nausea, denies shortness of breath
AF VSS
Sitting up at bedside, appears slightly dyspneic (although denies it)
Abdomen obese, minimal tenderness right upper quadrant, palpable mass right upper quadrant. No rebound rigidity or guarding
White blood cell count 21.6 from 27 overnight
Hemoglobin stable at 12.3
Slight thrombocytopenia with platelets of 120
Improving bilirubin of 2.7 and lipase now down to 978.
CT abdomen/pelvis 08/25/2023 images personally reviewed as well as radiologist report.
Gallbladder filled with radiopaque debris with surrounding phlegmonous inflammatory reaction extending into surrounding fatty tissue, area around duodenal bulb and adjacent transverse colon/transverse colon mesentery. Peripancreatic inflammatory
changes without fluid collection.
Assessment/plan: 68-year-old male with probable acute pancreatitis biliary mediated. Jaundice improving as well as lipasemia. MR negative for choledocholithiasis. Presumed passed gallstone or sludge/debris.
Background setting of severe subacute/chronic calculus cholecystitis. Phlegmonous inflammatory reaction extending from gallbladder into surrounding tissues. Cannot rule out underlying malignancy however imaging more suggestive of chronic
inflammatory/infectious process than malignancy.
Lengthy discussions with patient this a.m. as well as his daughter yesterday evening via phone call after CT imaging obtained. Advised of impression as outlined above and treatment recommendations below.
Due to severity of phlegmonous cholecystitis seen on imaging studies and untreated subacute/chronic presentation cholecystectomy at this time is anticipated to be quite challenging and of high surgical risk for injury to surrounding viscera
(duodenum/colon/portal structures/liver). Partial cholecystectomy would probably be only option surgically at this point and with open/laparotomy approach. Given this and overall clinical stability (no bacteremia, afebrile, no peritonitis on
examination) we discussed ideally continuing to treat medically with antibiotics, ongoing bowel rest for now and close observation.
Reviewed imaging with interventional radiologist confirming that given gallbladder is completely occupied by stones/debris/sludge percutaneous cholecystostomy tube likely not realistic option either and would be risky to place with good chance of
little clinical benefit.
Plan is therefore to treat as typically would for acute biliary pancreatitis with supportive care and antibiotic treatment of subacute/chronic phlegmonous cholecystitis.
With clinical improvement will consider dietary advancement over the next few days pending clinical course but hold on clear liquids for now.
Continue with Zosyn throughout hospitalization with plan to discharge on long-term course of Augmentin.
Ideally cholecystectomy would be deferred 4 to 6 weeks or possibly longer while on antibiotic treatment to allow for hopeful improvement in phlegmonous cholecystitis inflammatory process although even at a later date suspect high risk for need of
open cholecystectomy/challenging surgery. If clinical deterioration would obviously have to consider surgery sooner understanding surgical risks.
Any of the patient's concerns or questions were fully addressed as well as his daughters yesterday evening via phone call.
Will continue to follow
Original Note:
Today's Communication / Plan
-
Continue antibiotics and clear liquids
Assessment / Plan
-
Assessment: 68-year-old male with acute pancreatitis, probable biliary mediated.� Jaundice but within limits of MR imaging no evidence of choledocholithiasis.� MR imaging suggestive of chronic or subacute cholecystitis with possible underlying mass
versus chronic inflammatory process.� Gallbladder lumen appears completely occupied by stones. CT imaging obtained with findings of acute on chronic cholecystitis with reactive thickening of the duodenum. Some concern for malignancy remains but low
given clinical picture.
High risk for cholecystectomy at this point given degree of inflammation and concurrent pancreatitis. Discussed with IR physician, not good candidate for cholecystostomy as the gallbladder lumen is almost completely occupied by stones. Ideally,
would improve on antibiotics this admission with plan for outpatient cholecystectomy after completion of antibiotics/resolution of acute inflammatory process; however, if not improving may need more expedited surgical intervention
LFT's trending down now
Leukocytosis still significant but slight downtrend
Tachycardic overnight but afebrile. Now requiring O2
Plan:
Continue clear liquids
Trend labs
IV fluid hydration and supportive care for pancreatitis
Continue Zosyn for empiric biliary coverage
Medical management as per primary team
Imaging findings with patient and daughter.
Subjective Data
-
Date of Service: August 26, 2023
Patient seen and examined at bedside with Dr. Arrieta. Reports pain is improving. Events overnight noted. Denies n/v.
Objective Data
-
Intake and Output
08/25/23 08/26/23 08/27/23
06:59 06:59 06:59
Intake Total 0 / 0 2700 / 2700 1520 / 1520
Output Total 400 / 400
Balance 0 / 0 2700 / 2700 1120 / 1120
Intake:
Oral fluids 0 / 0 120 / 120
IV fluids (Total) 2500 / 2500 1200 / 1200
IV piggybacks 200 / 200 200 / 200
Output:
Urine, Voided 400 / 400
Other:
Number of approximated MODERATE 4
amounts of urine
How many times incontinent 1
SMALL amount urine
How many times incontinent 1
SATURATED amount urine
Vital Signs
Temp Pulse Resp BP Pulse Ox
97.3 F 96 16 129/70 97
08/26/23 07:22 08/26/23 08:37 08/26/23 07:22 08/26/23 08:37 08/26/23 08:35
Lab Results
08/26/23 05:54
08/26/23 05:54
Calcium 7.5 mg/dl (8.4-10.2) L 08/26/23 05:54
Magnesium 1.2 mg/dl (1.6-2.3) L 08/25/23 23:06
Total Bilirubin 2.7 mg/dl (0.2-1.3) H 08/26/23 05:54
Direct Bilirubin 1.6 mg/dl (0.0-0.4) H 08/26/23 05:54
AST 66 U/L (17-59) H 08/26/23 05:54
ALT 126 U/L (0-50) H 08/26/23 05:54
Alkaline Phosphatase 320 U/L (38-126) H 08/26/23 05:54
Total Protein 5.8 g/dl (6.3-8.2) L 08/26/23 05:54
Albumin 3.0 g/dl (3.5-5.0) L 08/26/23 05:54
Physical Exam
-
NAD, Ox3
ABD soft, ND, mild upper abdominal tenderness
Skin Mild jaundice, scleral icterus
--- NOTE | 2023-08-26 11:37 | W.PN.HOSP.TC ---
Addendum entered and electronically signed by Jaiden Cobb MD 08/26/23 11:48:
echo in am
Original Note:
Today's Communication/Plan
-
Monitor vitals
See plan
Decrease LR
wean o2 as tolerated
cw abx
Monitor leukocytosis
Monitor LFTs
Assessment / Plan
Assessment / Plan
General: Well Nourished and No Apparent Distress
HEENT: Anicteric and Moist mucous membranes
Respiratory: Clear and Non Labored Respirations; No Wheezes
Cardiac: S1/S2, Regular Rhythm and Tachycardia
Breast: Deferred by me
GI: Soft, Non Distended and Tender
Rectal: Deferred by Provider
Genito-urinary: No Nguyen
Musculoskeletal: No Edema
Neuro: Awake, Alert, Oriented and AO x 3
Psych: Calm and Intact Judgment/Insight
Abdominal pain, nausea vomiting likely secondary to pancreatitis
Suspect also related however could also be from NSAIDs, alcohol
Suspect sepsis (leukocytosis, tachycardia) secondary to pancreatitis
MRI without CBD stone; does concern for possible chronic or subacute cholecystitis with possible underlying mass; Surgery following; pending CT abdomen with c cholecystitis with sepsis patient for a developing cholecystoduodenal fistula. Surgery
following.
on clears
GI following
Zofran
Lipase elevated; slowly improving
blood culture NGTD, cw antibiotics
monitor leukocytosis
Monitor LFTs
Acute hypoxic respiratory insufficiency likely secondary to possible pneumonia
Chest x-ray consistent with pneumonia and possible pleural effusion
Continue with antibiotics
Elevated BNP
check echo
Hypomagnesemia
Repleted
History of hypertension
Hold lisinopril
Hydralazine as needed
Osteoarthritis
Hold ibuprofen, per patient he takes about 1200 mg Advil daily.
COPD
Not in exacerbation
Continue with home inhaler
Hyperlipidemia
Hold statin
DVT ppx
Lovenox
Full code
Anticipated Discharge: > 48 hours
Subjective/Interval History
-
Date of Service: August 26, 2023
denies pain
Objective Data
-
Labs:
Laboratory Results
08/26/23
05:54
WBC 21.6 H
Hgb 12.3 L
Hct 38.0 L
Plt Count 120 L
Sodium 135
Potassium 3.6
Chloride 103
Carbon Dioxide 27
BUN 21 H
Creatinine 1.3
Glucose 129 H
Calcium 7.5 L
Total Bilirubin 2.7 H
AST 66 H
ALT 126 H
Alkaline Phosphatase 320 H
Vital Signs:
Vital Signs
Temp Pulse Resp BP Pulse Ox
97.3 F 96 16 129/70 97
08/26/23 07:22 08/26/23 08:37 08/26/23 07:22 08/26/23 08:37 08/26/23 08:35
I&O
08/25/23 08/26/23 08/27/23
06:59 06:59 06:59
Intake Total 0 / 0 2700 / 2700 1520 / 1520
Output Total 400 / 400
Balance 0 / 0 2700 / 2700 1120 / 1120
[2023-08-26 11:57] VITALS: BP 132/79
--- NOTE | 2023-08-26 14:51 | W.PN.GI.CBS2 ---
Today's Communication / Plan
-
care per surgery/primary team, antibiotics, bowel rest
Assessment / Plan
-
�68-year-old male past medical history as below here with nausea, vomiting, diarrhea, fevers for 3 to 4 weeks, worse this morning after having cheese steak and bloody [place] last night he was having ongoing vomiting.� Found to have a white blood cell
count 17.9, lipase more than 4000, bilirubin 3.6, direct bilirubin 2.7, AST 240, ALT 207, alk phos 554, abdominal imaging with cholelithiasis without cholecystitis, fatty liver, splenomegaly.� This is all consistent with likely biliary pancreatitis
possibly worsened with alcohol. He denies any regular alcohol use.� I suspect the pain he was having the last 3 or 4 weeks was related to biliary colic.� He has also lost 60 lb in 6 weeks (intentionally) and the rapid weight loss can account for
gallstones.
Underwent MRI/MRCP 08/25: 'Mild acute uncomplicated interstitial edematous pancreatitis. Cholelithiasis with irregular gallbladder wall thickening/exophytic soft tissue and edema suspicious for neoplasm. Underlying acute cholecystitis not
definitely excluded. Consider initial further evaluation with dedicated HIDA scan if there is clinical concern for acute cholecystitis.'
CT 08/25: '1. Acute interstitial edematous pancreatitis.
2. Cholecystitis with suspicion for a developing cholecystoduodenal fistula, as above. Redemonstration of nodular soft tissue attenuation along the anterior-inferior aspect of the gallbladder wall, which again may be secondary to an underlying
gallbladder malignancy or potentially on the basis of a gangrenous, irregular gallbladder wall.'
Recommendations:
- appreciate surgery input, reviewed their recommendations
- antibiotics and diet per surgery
GI will sign off pls call with ?s
Subjective
Subjective
Date of Service: August 26, 2023
pain improving
Objective
Data Reviewed
Laboratory Data:
Laboratory Results
08/26/23 05:54
08/26/23 05:54
Laboratory Results
Magnesium 1.2 mg/dl (1.6-2.3) L 08/25/23 23:06
Total Bilirubin 2.7 mg/dl (0.2-1.3) H 08/26/23 05:54
AST 66 U/L (17-59) H 08/26/23 05:54
ALT 126 U/L (0-50) H 08/26/23 05:54
Alkaline Phosphatase 320 U/L (38-126) H 08/26/23 05:54
Lipase 978 U/L (23-300) H 08/26/23 05:54
Vital Signs and I&O:
Vital Signs
Temp Pulse Resp BP Pulse Ox
98.7 F 98 18 132/79 98
08/26/23 11:57 08/26/23 11:57 08/26/23 11:57 08/26/23 11:57 08/26/23 11:57
I&O
08/25/23 08/26/23 08/27/23
06:59 06:59 06:59
Intake Total 0 / 0 2700 / 2700 1520 / 1520
Output Total 400 / 400
Balance 0 / 0 2700 / 2700 1120 / 1120
Physical Exam
Physical Exam
GI: Non Distended and Non Tender
[2023-08-26 15:19] VITALS: BP 155/79
[2023-08-26] MEDS: LOVENOX 40 MG SC (17:20)
[2023-08-26 20:28] VITALS: BP 131/79
[2023-08-26 22:54] VITALS: BP 138/63
[2023-08-27 03:16] VITALS: BP 128/64
[2023-08-27] MEDS: LR 1000 IV (03:17)
[2023-08-27] MEDS: ZOSYN 50 IV ×4 (03:38→20:59)
[2023-08-27] MEDS: TUMS 2 TABLET PO ×2 (04:02→16:18)
[2023-08-27 06:00] VITALS: BMI 43.4
[2023-08-27 07:00] VITALS: BP 137/74
[2023-08-27 07:21] LABS: % Basophils 0.2 % (0-2); % Eosinophils 1.2 % (0-6); % Immature Granulocytes 1.9 % (0-0.5); % Lymphocytes 4.8 % (20.5-51.1); % Monocytes 6.2 % (1.7-9.3); % Neutrophils 85.7 % (42.2-75.2); Absolute Eosinophils 0.2 10^3/uL (0-0.7); Absolute Immature Granulocytes 0.3 10^3/uL (0-0.05); Absolute Lymphocytes 0.8 10^3/uL (1.2-3.4); Absolute Monocytes 1.1 10^3/uL (0.1-0.6); Absolute Neutrophils 14.7 10^3/uL (1.4-6.5); Hematocrit 34.7 % (39.0-52.0); Hemoglobin 11.5 g/dL (13.0-18.0); Mean Corp Hgb Conc. 33.1 g/dL (33.0-37.0); Mean Corpuscular Hgb 28.8 pg (27.0-31.0); Mean Platelet Volume 9.9 fL (7.4-10.4); Nucleated Red Blood Cells % 0 % (-); Platelet Count 123 10^3/uL (130-400); Red Blood Cell Count 3.99 10^6/uL (4.70-6.10); Red Cell Dist. Width 15.7 % (11.5-14.5); White Blood Cell Count 17.2 10^3/uL (4.8-10.8)
[2023-08-27] MEDS: SPIRIVA RESPIMAT 2.5 MCG 2 PUFF INH (08:05)
[2023-08-27] MEDS: SYMBICORT 160/4.5 MCG INHALER 2 PUFF INH ×2 (08:05→20:47)
[2023-08-27] MEDS: ZESTRIL 10 MG PO (08:40)
--- NOTE | 2023-08-27 08:47 | W.PN.HOSP.TC ---
Today's Communication/Plan
-
Will continue present course of antibiotics
Continue to monitor leukocytosis which continues to trend down
Will advance diet as per surgery recommendation
Continue to trend LFTs
As long as present course continues we will continue on long-term antibiotics till seen in follow-up by surgery for cholecystectomy sometime in the future
Assessment / Plan
Assessment / Plan
General: Well Nourished and No Apparent Distress
HEENT: Anicteric and Moist mucous membranes
Respiratory: Clear and Non Labored Respirations; No Wheezes
Cardiac: S1/S2, Regular Rhythm and Tachycardia
Breast: Deferred by me
GI: Soft, Non Distended and Tender
Rectal: Deferred by Provider
Genito-urinary: No Nguyen
Musculoskeletal: No Edema
Neuro: Awake, Alert, Oriented and AO x 3
Psych: Calm and Intact Judgment/Insight
Abdominal pain, nausea vomiting likely secondary to pancreatitis
Suspect also related however could also be from NSAIDs, alcohol
Suspect sepsis (leukocytosis, tachycardia) secondary to pancreatitis
MRI without CBD stone; does concern for possible chronic or subacute cholecystitis with possible underlying mass; Surgery following;
CT abdomen with c cholecystitis with sepsis patient for a developing cholecystoduodenal fistula.
Surgery following/per their assessment due to severity of the phlegmonous cholecystitis seen on imaging and untreated subacute chronic presentation a cholecystectomy would be challenging and to high risk given overall clinical stability no
bacteremia no peritonitis treatment will be continued medical management with antibiotics and ongoing bowel rest for now and close observation with ideally pursuing cholecystectomy in 4 to 6 weeks possibly longer on antibiotic course with plans for
long-term course of Augmentin
on clears and await advancement as per surgery
GI was following now signed off
Zofran
Lipase elevated; slowly improving today's pending
blood culture NGTD, cw antibiotics
monitor leukocytosis
Monitor LFTs
Acute hypoxic respiratory insufficiency likely secondary to possible pneumonia
Chest x-ray consistent with pneumonia and possible pleural effusion
Continue with antibiotics
Elevated BNP
check echo
Hypomagnesemia
Repleted
History of hypertension
Hold lisinopril
Hydralazine as needed
Osteoarthritis
Hold ibuprofen, per patient he takes about 1200 mg Advil daily.
COPD
Not in exacerbation
Continue with home inhaler
Hyperlipidemia
Hold statin
DVT ppx
Lovenox
Full code
Anticipated Discharge: > 48 hours
Subjective/Interval History
-
Date of Service: August 27, 2023
States he feels well he has tolerated clear liquids thus far he had a bowel movement this morning. Denies any abdominal pain.
Objective Data
-
Labs:
Laboratory Results
08/27/23
06:40
WBC 17.2 H
Hgb 11.5 L
Hct 34.7 L
Plt Count 123 L
Sodium Pending
Potassium Pending
Chloride Pending
Carbon Dioxide Pending
BUN Pending
Creatinine Pending
Glucose Pending
Calcium Pending
Total Bilirubin Pending
AST Pending
ALT Pending
Alkaline Phosphatase Pending
Vital Signs:
Vital Signs
Temp Pulse Resp BP Pulse Ox
97.8 F 76 20 137/74 96
08/27/23 07:00 08/27/23 08:08 08/27/23 08:08 08/27/23 07:00 08/27/23 08:08
I&O
08/26/23 08/27/23 08/28/23
06:59 06:59 06:59
Intake Total 6460 / 6460 5760 / 5760
Output Total 1050 / 1050
Balance 6460 / 6460 4710 / 4710
Review of Systems
-
History Source: Patient
All other systems: Reviewed and negative
Constitutional: Reports No Symptoms
Respiratory: Reports No Symptoms
Cardiac: Reports No Symptoms
Abdomen/GI: Reports No Symptoms
Physical Exam
-
General: Morbidly Obese
HEENT: Normocephalic
Respiratory: Clear to Auscultation
Cardiac: Regular Rhythm
GI: Soft and Tender (Diffusely/no peritoneal signs)
Musculoskeletal: No Edema
Neuro: Awake, Alert, Oriented, AO x 3 and No Motor Deficits
Psych: Calm
[2023-08-27 08:59] LABS: ALT (SGPT) 76 U/L (0-50); AST (SGOT) 34 U/L (17-59); Albumin 2.8 g/dl (3.5-5.0); Alkaline Phosphatase 239 U/L (38-126); Blood Urea Nitrogen 18 mg/dl (9-20); Calcium 7.3 mg/dl (8.4-10.2); Carbon Dioxide 26 mmol/L (22-30); Chloride 101 mmol/L (98-107); Estimated Creatinine Clearance 114 ml/min; Glucose 121 mg/dl (70-99); Lipase 265 U/L (23-300); Potassium 3.4 mmol/L (3.5-5.1); Sodium 133 mmol/L (135-145); Total Bilirubin 1.8 mg/dl (0.2-1.3); Total Protein 5.5 g/dl (6.3-8.2); eGFR > 60.00
--- NOTE | 2023-08-27 09:28 | W.PN.GS2 ---
Today's Communication / Plan
-
Okay to advance to a low-fat diet.
Continue to trend labs.
Respiratory insufficiency, will appreciate workup per primary.
IV fluid hydration and supportive care for pancreatitis
Continue Zosyn for empiric biliary coverage, will defer to primary versus ID for long-term/home antibiotic coverage of acute cholecystitis.
Will plan for a definitive cholecystectomy in 4 to 6 weeks.
Patient to follow-up with Dr. Arrieta
Assessment / Plan
-
Assessment: 68-year-old male with acute pancreatitis, probable biliary mediated.� Jaundice but within limits of MR imaging no evidence of choledocholithiasis.� MR imaging suggestive of chronic or subacute cholecystitis with possible underlying mass
versus chronic inflammatory process.� Gallbladder lumen appears completely occupied by stones. CT imaging obtained with findings of acute on chronic cholecystitis with reactive thickening of the duodenum. Some concern for malignancy remains but low
given clinical picture.
LFTs and leukocytosis improving.
Patient subjectively and clinically improving as well.
Plan:
Okay to advance to a low-fat diet.
Continue to trend labs.
Respiratory insufficiency, will appreciate workup per primary.
IV fluid hydration and supportive care for pancreatitis
Continue Zosyn for empiric biliary coverage, will defer to primary versus ID for long-term/home antibiotic coverage of acute cholecystitis.
Will plan for a definitive cholecystectomy in 4 to 6 weeks.
Patient to follow-up with Dr. Arrieta
Time Spent
Total Time Spent with Patient (in minutes): 25
Subjective Data
-
Date of Service: August 27, 2023
Interval Events:
No acute events overnight. Slept well. Pain Controlled. Denies Nausea/Vomiting, +bowel function. Tolerating diet.
Objective Data
-
Intake and Output
08/26/23 08/27/23 08/28/23
06:59 06:59 06:59
Intake Total 6460 / 6460 5760 / 5760
Output Total 1050 / 1050
Balance 6460 / 6460 4710 / 4710
Intake:
Oral fluids 2160 / 2160 1360 / 1360
IV fluids (Total) 4000 / 4000 4000 / 4000
IV piggybacks 300 / 300 400 / 400
Output:
Urine, Voided 1050 / 1050
Other:
Number of approximated MODERATE 4 5
amounts of urine
How many times incontinent 1
SMALL amount urine
How many times incontinent 1
MODERATE amount urine
How many times incontinent 1
SATURATED amount urine
Vital Signs
Temp Pulse Resp BP Pulse Ox
97.8 F 76 20 137/74 96
08/27/23 07:00 08/27/23 08:08 08/27/23 08:08 08/27/23 07:00 08/27/23 08:08
Lab Results
08/27/23 06:40
08/27/23 06:40
Calcium 7.3 mg/dl (8.4-10.2) L 08/27/23 06:40
Magnesium 1.2 mg/dl (1.6-2.3) L 08/25/23 23:06
Total Bilirubin 1.8 mg/dl (0.2-1.3) H 08/27/23 06:40
Direct Bilirubin 1.6 mg/dl (0.0-0.4) H 08/26/23 05:54
AST 34 U/L (17-59) 08/27/23 06:40
ALT 76 U/L (0-50) H 08/27/23 06:40
Alkaline Phosphatase 239 U/L (38-126) H 08/27/23 06:40
Total Protein 5.5 g/dl (6.3-8.2) L 08/27/23 06:40
Albumin 2.8 g/dl (3.5-5.0) L 08/27/23 06:40
Physical Exam
-
GENERAL/NEURO: Awake, Alert, no distress
CHEST: Unlabored breathing on NC
ABDOMEN: Soft, obese, mildly tender to palpation in the right upper quadrant, nondistended.
[2023-08-27 11:00] VITALS: BP 151/81
[2023-08-27] MEDS: ZOFRAN 4 MG IV (11:57)
[2023-08-27] MEDS: LR IV (11:57)
--- NOTE | 2023-08-27 13:48 | CM ---
Patient seen at bedside. Patient states he lives alone in a one story home. patient states that he has no DME and does not anticipate needing any VN or other supports. Patient PCP is Dr. Burdick and he uses the [facility] in [place] for pharmacy
needs. CM will continue to follow for discharge planning needs.
Plan; home with no needs at this time; watch for possible needs for antibiotics
[2023-08-27 15:00] VITALS: BP 145/67
[2023-08-27] MEDS: KCL 20 MEQ PO (15:14)
[2023-08-27] MEDS: LOVENOX 40 MG SC (17:43)
[2023-08-27 19:30] VITALS: BP 158/79
[2023-08-27 23:40] VITALS: BP 160/59
[2023-08-28 03:28] VITALS: BP 144/76
[2023-08-28] MEDS: ZOSYN 50 IV ×2 (04:02→09:23)
[2023-08-28 06:00] VITALS: BMI 43.2
[2023-08-28 07:00] VITALS: BP 157/88
[2023-08-28] MEDS: SPIRIVA RESPIMAT 2.5 MCG 2 PUFF INH (07:15)
[2023-08-28] MEDS: SYMBICORT 160/4.5 MCG INHALER 2 PUFF INH (07:15)
[2023-08-28 07:49] LABS: Hematocrit 35.6 % (39.0-52.0); Hemoglobin 11.6 g/dL (13.0-18.0); Mean Corp Hgb Conc. 32.6 g/dL (33.0-37.0); Mean Corpuscular Hgb 28.6 pg (27.0-31.0); Mean Corpuscular Volume 87.9 fL (80.0-94.0); Mean Platelet Volume 9.9 fL (7.4-10.4); Platelet Count 135 10^3/uL (130-400); Red Blood Cell Count 4.05 10^6/uL (4.70-6.10); Red Cell Dist. Width 15.3 % (11.5-14.5); White Blood Cell Count 13.3 10^3/uL (4.8-10.8)
[2023-08-28] MEDS: ZESTRIL 10 MG PO (07:58)
[2023-08-28 08:25] LABS: ALT (SGPT) 52 U/L (0-50); AST (SGOT) 30 U/L (17-59); Albumin 2.7 g/dl (3.5-5.0); Alkaline Phosphatase 208 U/L (38-126); Blood Urea Nitrogen 16 mg/dl (9-20); Calcium 7.6 mg/dl (8.4-10.2); Carbon Dioxide 27 mmol/L (22-30); Chloride 101 mmol/L (98-107); Estimated Creatinine Clearance 103 ml/min; Glucose 116 mg/dl (70-99); Potassium 3.5 mmol/L (3.5-5.1); Sodium 133 mmol/L (135-145); Total Bilirubin 1.3 mg/dl (0.2-1.3); Total Protein 5.4 g/dl (6.3-8.2); eGFR > 60.00
--- NOTE | 2023-08-28 09:52 | W.DS.TRANS ---
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
-
Discharge Instructions:
Discharge Diagnosis/Procedures Cholecystitis with sepsis
Chronic or subacute cholecystitis with possible
underlying mass
Acute pancreatitis
Acute hypoxic respiratory insufficiency likely
secondary to possible pneumonia
Resolving transaminitis
Diet Low Fat
Activity As tolerated
Driving Restrictions As prior to admission
Instructions:
Stand-Alone Forms:
Changes to Home Medications: Yes
Discharge Medications:
DC Medications w/original date entered in [facility]
albuterol sulfate 90 mcg/actuation aerosol inhaler (ProAir HFA) 2 puff inhalation R QIDPRN PRN sob 08/24/23
fluticasone fur. 200 mcg-umeclid 62.5 mcg-vilant 25 mcg inhalat.powder (Trelegy Ellipta) 1 inh inhalation R DAILY COPD 08/24/23
lisinopril 10 mg tablet 10 mg PO DAILY Blood Pressure 08/24/23
amoxicillin 875 mg-potassium clavulanate 125 mg tablet 1 tab PO BID Infection #30 tabs 08/28/23
Home Medication Changes
amoxicillin 875 mg-potassium clavulanate 125 mg tablet 1 tab PO BID Infection #30 tabs 08/28/23
Pending Results: No
Total time spent discharging patient (in min): 38
--- NOTE | 2023-08-28 10:04 | W.PN.GS2 ---
Today's Communication / Plan
-
-- Zosyn while in patient, Augmentin on DC for 3 weeks
-- OK for DC from surgical perspective
-- Patient to follow-up with Dr. Arrieta in 2-3 weeks
Assessment / Plan
-
Assessment: 68-year-old male with acute pancreatitis, probable biliary mediated.� Jaundice but within limits of MR imaging no evidence of choledocholithiasis.� MR imaging suggestive of chronic or subacute cholecystitis with possible underlying mass
versus chronic inflammatory process.� Gallbladder lumen appears completely occupied by stones. CT imaging obtained with findings of acute on chronic cholecystitis with reactive thickening of the duodenum. Some concern for malignancy remains but low
given clinical picture.
LFTs and leukocytosis improving.
Patient subjectively and clinically improving as well.
Plan:
LRD
Respiratory insufficiency, will appreciate workup per primary.
OK to HLIV
Zosyn while in patient, Augmentin on DC for 3 weeks
OK for DC from surgical perspective
Patient to follow-up with Dr. Arrieta in 2-3 weeks
Subjective Data
-
Date of Service: August 28, 2023
Feels significantly improved, and back to normal. No abdominal pain. No nausea or vomiting. No fevers.
Objective Data
-
Intake and Output
08/27/23 08/28/23 08/29/23
06:59 06:59 06:59
Intake Total 5760 / 5760 580 / 580
Output Total 1050 / 1050 875 / 875
Balance 4710 / 4710 -295 / -295
Intake:
Oral fluids 1360 / 1360 480 / 480
IV fluids (Total) 4000 / 4000 100 / 100
IV piggybacks 400 / 400
Output:
Urine, Voided 1050 / 1050 875 / 875
Other:
Number of approximated MODERATE 5 1
amounts of urine
How many times incontinent 1
SMALL amount urine
How many times incontinent 1
MODERATE amount urine
How many times incontinent 1
SATURATED amount urine
Vital Signs
Temp Pulse Resp BP Pulse Ox
97.5 F 86 18 155/87 94
08/28/23 07:00 08/28/23 09:06 08/28/23 09:06 08/28/23 07:58 08/28/23 09:06
Lab Results
08/28/23 06:40
08/28/23 06:40
Calcium 7.6 mg/dl (8.4-10.2) L 08/28/23 06:40
Magnesium 1.2 mg/dl (1.6-2.3) L 08/25/23 23:06
Total Bilirubin 1.3 mg/dl (0.2-1.3) 08/28/23 06:40
Direct Bilirubin 1.6 mg/dl (0.0-0.4) H 08/26/23 05:54
AST 30 U/L (17-59) 08/28/23 06:40
ALT 52 U/L (0-50) H 08/28/23 06:40
Alkaline Phosphatase 208 U/L (38-126) H 08/28/23 06:40
Total Protein 5.4 g/dl (6.3-8.2) L 08/28/23 06:40
Albumin 2.7 g/dl (3.5-5.0) L 08/28/23 06:40
Physical Exam
-
Gen: NAD
Abd: obese, soft, NT/ND, palpable GB, non-peritoneal
--- NOTE | 2023-08-28 10:05 | CM ---
MD entered order for discharge .
Spoke with patient he said he was ready for discharge.
Daughter Payal will drive him home.
Offered V he declined need .
PLAN Home no needs
--- NOTE | 2023-08-28 12:41 | W.DCSUMMARY ---
Discharge Summary
Discharge Data
Date of Admission: 08/24/23
Date of Discharge: 08/28/23
-
Pending Results: No
Hospital Course
Arthritis and COPD with morbid obesity presented with abdominal pain nausea vomiting symptoms started after having 2 drinks of a bloody Montse and a cheese steak. Thereafter developed increasing abdominal pain and was intractable/evaluation in the ED
noted initial concern for pancreatitis with a markedly elevated lipase liver transaminases and questionable cholelithiasis cholecystitis. Ultrasound showed multiple gallstones in the gallbladder with no signs of cholecystitis or biliary dilatation
initially. He was kept n.p.o. admitted started on lactated Ringer's and vigorous fluid volume replacement. Subsequent MRI imaging showed no evidence of any choledocho cholelithiasis however did show evidence of chronic versus subacute
cholecystitis with possible underlying mass effect versus chronic inflammatory process consultation with the surgical service felt that gallbladder lumen being completely occupied with stones felt a cone-down. Of anti-inflammatory treatment
including wide spectrum antibiotic coverage and no surgical intervention for at least several weeks was warranted.MRI did show a a interstitial edematous pancreatitis necessitating fluid resuscitation and eventual transition to a low-fat diet was
undertaken. Gastroenterology consultation no interventions recommended and agree with surgical assessment and the lack of findings to suggest any biliary tree involvement for choledocho cholelithiasis. Patient had significant elevated liver
transaminases at have trended toward normal with still a mildly elevated alkaline phosphatase of 200 lipase is normalized leukocytosis is normalizing after empiric coverage with Zosyn he will be transition to a course of Augmentin 875 mg twice a day
for next 3 weeks until which time general surgery will reevaluate possible intervention at that time for cholecystectomy. We called in a prescription for Augmentin 875 mg twice a day for 3 weeks to his local pharmacy with instructions also to take
a probiotic during course of therapy. And an incidental note the patient did manifest a questionable inflammatory infiltrate in her right basal lung possibly consistent with a pneumonic infiltrate did not change with treatment protocols and did not
have significant respiratory symptoms associated. A 2D echocardiogram was also performed during hospitalization showing an EF of 65% with no significant valvular disease nor left ventricular change in size or function was considered normal.
Discharge Plan
-
Patient Disposition: Home (Routine Discharge)
Discharge Diagnosis/Procedures: Cholecystitis with sepsis
Chronic or subacute cholecystitis with possible underlying mass
Acute pancreatitis
Acute hypoxic respiratory insufficiency likely secondary to possible pneumonia
Resolving transaminitis
Diet: Low Fat
Activity: As tolerated
Driving Restrictions: As prior to admission
Referrals:
Angelito Arrieta MD [Active] - in two weeks
Richard Burdick DO [Family Provider] - in less than 1 week
Prescriptions:
New
amoxicillin-pot clavulanate 875-125 mg tablet
1 tab PO BID Qty: 42 0RF
Continued
lisinopril 10 mg Tablet
10 mg PO DAILY
albuterol sulfate [ProAir HFA] 90 mcg/actuation Hfa Aerosol Inhaler
2 puff INHALATION R QIDPRN PRN (Reason: sob)
Trelegy Ellipta 200-62.5-25 mcg Blister With Device
1 inh INHALATION R DAILY
Discontinued
atorvastatin [Lipitor] 10 mg Tablet
10 mg PO QPM
ibuprofen [Advil] 200 mg Tablet
400 mg PO DAILY
ibuprofen [Advil] 200 mg Tablet
600 mg PO HS
Discharge Orders:
Discharge Patient (As Directed); Ordered 08/28/23
Ordered By: Dajuan Freed
[2023-08-28] MEDS: TUMS 2 TABLET PO (15:01)
== END 2023-08-28 16:20 | disposition home or self-care (01) | DRG 871 ==
LOC: 4 EAST ACU 15:33
PROVIDERS: Nurse Practitioner Family; Physician Assistant; ADMITTING PHYSICIAN Internal Medicine; ATTENDING PHYSICIAN Internal Medicine; CONSULT PHYSICIAN Internal Medicine Gastroenterology; CONSULT PHYSICIAN Surgery; EMERGENCY PHYSICIAN Emergency Medicine; FAMILY PHYSICIAN Family Medicine
DX: A41.9 Sepsis, unspecified organism (principal); J18.9 Pneumonia, unspecified organism; K85.90 Acute pancreatitis without necrosis or infection, unspecified; K80.10 Calculus of gallbladder with chronic cholecystitis without obstruction; Z68.41 Body mass index [BMI] 40.0-44.9, adult; M19.90 Unspecified osteoarthritis, unspecified site; J44.9 Chronic obstructive pulmonary disease, unspecified; E78.00 Pure hypercholesterolemia, unspecified; E83.42 Hypomagnesemia; R06.89 Other abnormalities of breathing; E66.01 Morbid (severe) obesity due to excess calories; R09.02 Hypoxemia
CPT/HCPCS: 71045; 74177; 74183; 76700; 80048; 80053; 82248; 83605; 83690; 83735; 83880; 85025; 85027; 87040; 93005; 93306; 94640; 96361; 96374; 96375; 99284; A9575; Q9967

== ENCOUNTER → 2023-10-02 12:17 | Outpatient (REF) | payer OTHER, SELFPAY | LOC: RAD 12:17 | PROVIDERS: ATTENDING PHYSICIAN Surgery; FAMILY PHYSICIAN Family Medicine | DX: K80.10 Calculus of gallbladder with chronic cholecystitis without obstruction (principal) | CPT/HCPCS: 74160; Q9967 ==

== ENCOUNTER 2023-10-25 12:53 | Inpatient (IN) | payer OTHER, SELFPAY ==
[2023-10-12 09:18] VITALS: BMI 40.3
[2023-10-12 09:58] LABS: Hematocrit 47.9 % (39.0-52.0); Mean Corp Hgb Conc. 33.4 g/dL (33.0-37.0); Mean Corpuscular Hgb 29.2 pg (27.0-31.0); Mean Corpuscular Volume 87.4 fL (80.0-94.0); Mean Platelet Volume 9.5 fL (7.4-10.4); Platelet Count 134 10^3/uL (130-400); Red Blood Cell Count 5.48 10^6/uL (4.70-6.10); Red Cell Dist. Width 15.4 % (11.5-14.5); White Blood Cell Count 10.9 10^3/uL (4.8-10.8)
[2023-10-12 10:25] LABS: ALT (SGPT) 24 U/L (0-50); AST (SGOT) 27 U/L (17-59); Albumin 4.4 g/dl (3.5-5.0); Alkaline Phosphatase 86 U/L (38-126); Blood Urea Nitrogen 29 mg/dl (9-20); Calcium 8.9 mg/dl (8.4-10.2); Carbon Dioxide 22 mmol/L (22-30); Chloride 108 mmol/L (98-107); Estimated Creatinine Clearance 74 ml/min; Glucose 86 mg/dl (70-99); Potassium 4.1 mmol/L (3.5-5.1); Sodium 138 mmol/L (135-145); Total Bilirubin 0.8 mg/dl (0.2-1.3); Total Protein 7.1 g/dl (6.3-8.2); eGFR > 60.00
--- NOTE | 2023-10-17 11:43 | CM ---
Patient is scheduled for a Robotic Cholecystectomy on 10/25/23. Spoke with patient prior to surgery via telephone to complete case management assessment and assess for discharge planning needs. Patient reports that he lives alone in a two story home.
There are no steps to enter and a flight of steps to the second floor. He currently functions independently. He has no DME and has never had VN services. He has a prescription plan and uses [facility].
PCP is Richard Burdick
Discussed discharge plans. Patient plans to return home at discharge. He states that he will have support from his daughters when he goes home. One of his daughters will stay with him. He has no discharge planning concerns at this time. Discussed
possible need for VN services and reviewed options. Patient does not feel services will be needed.
--- NOTE | 2023-10-19 14:44 | PTCARENOTE ---
Abn EKG reported to Dr. Bonilla, no actions requested.
[2023-10-25] VITALS (20 sets, daily range): BP systolic 28–142; BP diastolic 57–84; BMI 40.3; BMI 40.7
[2023-10-25] MEDS: TYLENOL 1000 MG PO (07:03)
[2023-10-25] MEDS: NORMOSOL-R 1000 IV (07:04)
--- NOTE | 2023-10-25 07:04 | HP.FOC2 ---
Focused History & Physical
Chief Complaint
HPI:
Chief Complaint: History of acute calculus cholecystitis
HPI / Indication for Planned Procedure: Patient is a 68-year-old male recently hospitalized this past August with postprandial epigastric and right upper quadrant pain and nausea/vomiting. Found to have diffuse thickening of gallbladder with
phlegmonous acute calculus cholecystitis. He was managed with IV fluids, bowel rest and supportive care utilizing empiric antibiotics and responded well. Interval imaging shows significant improvement in previous inflammatory changes of the
gallbladder. He presents today for scheduled cholecystectomy.
Relevant Past Medical History: Other (Asthma, hypertension, COPD, obesity with BMI 40.3)
Relevant Social History: Negative
Relevant Family History: Negative
Relevant Past Surgical History: Negative
Review of Systems
Review of Pertinent Systems: All Systems Negative
Medication
See Medication form for detailed medications: Yes
Medication List (including Herbals & OTC):
albuterol sulfate 90 mcg/actuation aerosol inhaler (ProAir HFA) 2 puff inhalation R QIDPRN PRN sob 08/24/23
fluticasone fur. 200 mcg-umeclid 62.5 mcg-vilant 25 mcg inhalat.powder (Trelegy Ellipta) 1 inh inhalation R DAILY COPD 08/24/23
lisinopril 10 mg tablet 10 mg PO DAILY Blood Pressure 08/24/23
atorvastatin 10 mg tablet 10 mg PO DAILY 10/18/23
Medications Reviewed: Yes
Allergies and Reactions
Patient has Allergies: No
Noted Allergies and Reactions:
Allergy/AdvReac Type Severity Reaction Status Date / Time
No Known Allergies Allergy Verified 10/25/23 06:49
Pertinent Physical Exam
All Other Systems: Negative
Head/Neck: Normal
Lungs: Normal
Heart: Normal
Abdomen: Normal
Extremities: Normal
Neurological: Normal
Diagnosis / Assessment
68-year-old male with recent history of acute phlegmonous calculus cholecystitis presenting for scheduled cholecystectomy
Plan / Procedure
Robotic assisted laparoscopic cholecystectomy
Anesthesia/Sedation to be done by Anesthesia Provider: Yes
--- NOTE | 2023-10-25 07:06 | W.SUR.PREOP ---
Pre-Operative Surgical Note
-
I have examined this patient prior to the performance of the scheduled procedure.
The patient's condition is unchanged from the time of the current History and
Physical and the patient is able to undergo the scheduled procedure.
[2023-10-25] MEDS: IC GREEN 2.5 MG IV (07:21)
--- NOTE | 2023-10-25 12:20 | W.IMMPOSTOP ---
Addendum entered and electronically signed by Angelito Arrieta MD 10/30/23 16:10:
#[id number]
Original Note:
Surgical Immed Post Op Note
-
Primary Surgeon: Berny
Assisting Surgeon: Lety LAO
Pre-op Diagnosis: Chronic calculus cholecystitis
Post-op Diagnosis: Chronic calculus cholecystitis
Procedure Performed: Robotic assisted laparoscopic converted to open fenestrated cholecystectomy
Anesthesia Type: GETA +0.25% Marcaine
Specimen / Cultures: Portions of gallbladder
Estimated Blood Loss: 50 mL
Complications: None immediate
Operative Findings: Severe chronic calculus cholecystitis with gallbladder completely encased within omental/colonic/periduodenal adhesions. Gallbladder completely full of small gallstones. Evidence of prior gallbladder perforation as there were
gallstones present within omental adhesions and outside gallbladder wall during initial mobilization. Conversion to open through right subcostal Letty incision after mobilizing fundus and starting to visualize intimately adherent serosal surface
of transverse colon and pylorus. Through open approach gallbladder was essentially widely fenestrated removing portions of fundus and free areas of gallbladder wall. Regions of gallbladder serosa which were essentially fused to transverse colon
serosa and periduodenal/pyloric serosa areas were abandoned and left adherent to the surfaces to prevent any associated iatrogenic injury.
Gallbladder contents completely evacuated which was innumerable small gallstones throughout the entire lumen. Right upper quadrant copiously irrigated and washed out to ensure that all gallstones and debris were fully evacuated. Cystic duct
communication with infundibular region of the gallbladder felt to be visualized however tissue so tensely adherent to the portal structures that circumferential dissection or isolation of the cystic duct not physically possible. Attempted to place
intraluminal 0 silk sutures to occlude cystic duct and also applied Surgi-Rohit in this area.
Anticipating postoperative bile leak from cystic duct stump.
Drains: 19 Yogi right upper quadrant/subhepatic space/cystic duct stump area
Plan: IV fluids, n.p.o., Zosyn, BERNABE care, analgesics and antiemetics as needed, we will discuss with GI service as anticipate need for ERCP sphincterotomy and stenting
Updated patient's daughter in the surgical waiting area and patient's girlfriend.
[2023-10-25] MEDS: NSS 1000 IV ×2 (13:36→22:26)
[2023-10-25] MEDS: ZOSYN 50 IV ×2 (13:48→19:48)
[2023-10-25] MEDS: DILAUDID 0.25 MG IV (13:57)
[2023-10-25] MEDS: DILAUDID 0.5 MG IV ×2 (14:44→17:38)
--- NOTE | 2023-10-25 16:43 | PTCARENOTE ---
Received pt from PACU via bed, accompanied by PACU staff. Pt AAO x3, FENTON. VSS. ON nc 2 lpm- pulse ox 96%, no c/o SOB. Abd obese, sl firm; hypoactive BS. Pt lesli small amts ice chips; otherwise NPO. Nguyen P/I clear sharona urine. Rt upper abd
Aqucell and Rt abd BERNABE drain site dsgs D/I; BERNABE drain P/I small amts serosanguinous drainage. lap sites on anterior abd x3 with Dermabond intact, no drainage noted. IVF's NSS @ 120 ml/hr infusing via Lt hand without sx of infiltration. Oriented to
4east, currently resting comfortably. Will continue to monitor.
[2023-10-25] MEDS: LOVENOX 40 MG SC (17:37)
[2023-10-25] MEDS: FLUSH (NSS) 1 FLUSH IV (17:38)
[2023-10-25] MEDS: DILAUDID 1 MG IV ×2 (19:48→23:16)
[2023-10-25] MEDS: ANESTHETIC LOZENGE 1 LOZENGE PO (20:04)
[2023-10-25] MEDS: ZOFRAN 4 MG IV (22:29)
[2023-10-26] VITALS (14 sets, daily range): BP systolic 30–161; BP diastolic 63–94
[2023-10-26] MEDS: ZOSYN 50 IV ×4 (01:58→19:48)
[2023-10-26] MEDS: DILAUDID 1 MG IV ×6 (03:16→19:48)
[2023-10-26] MEDS: ZOFRAN 4 MG IV (06:10)
--- NOTE | 2023-10-26 06:18 | PTCARENOTE ---
Pt with intermittent flushed face and cold sweats that only lasted for about 30 seconds throughout night. Pt states no other symptoms associated just sweating. Pt states he has been very sensitive to any type of medications in the past. Patient has
no other complaints. Resting comfortably. Plan of care ongoing
[2023-10-26 07:23] LABS: Hematocrit 45.3 % (39.0-52.0); Hemoglobin 15.1 g/dL (13.0-18.0); Mean Corp Hgb Conc. 33.3 g/dL (33.0-37.0); Mean Corpuscular Hgb 29.3 pg (27.0-31.0); Mean Corpuscular Volume 87.8 fL (80.0-94.0); Mean Platelet Volume 9.3 fL (7.4-10.4); Platelet Count 100 10^3/uL (130-400); Red Blood Cell Count 5.16 10^6/uL (4.70-6.10); Red Cell Dist. Width 14.3 % (11.5-14.5); White Blood Cell Count 15.3 10^3/uL (4.8-10.8)
[2023-10-26] MEDS: NSS 1000 IV ×2 (07:32→18:56)
[2023-10-26] MEDS: SPIRIVA RESPIMAT 2.5 MCG 2 PUFF INH (07:33)
[2023-10-26] MEDS: SYMBICORT 160/4.5 MCG INHALER 2 PUFF INH ×2 (07:33→19:27)
[2023-10-26 07:49] LABS: Blood Urea Nitrogen 23 mg/dl (9-20); Calcium 8.3 mg/dl (8.4-10.2); Carbon Dioxide 24 mmol/L (22-30); Chloride 103 mmol/L (98-107); Estimated Creatinine Clearance 72 ml/min; Glucose 108 mg/dl (70-99); Potassium 4.6 mmol/L (3.5-5.1); Sodium 134 mmol/L (135-145); eGFR 55.43
[2023-10-26] MEDS: DILAUDID 0.5 MG IV (08:49)
--- NOTE | 2023-10-26 13:52 | PTCARENOTE ---
At 1315, noted that in the last 15 minutes emptied 120ml of bloody drainage from his BERNABE drain. Prior, the drainage was more serosanguineous. He also seems to be in more pain around the drain site than prior. Pt was trying to adjust self in bed prior
to more drainage with BERNABE drain and increase in pain. Ice to incision site with improvement of pain. BP 152/87, HR 101, Temp 98.3. Made Dr. Hernandez aware, will continue to monitor closely.
--- NOTE | 2023-10-26 14:56 | W.PN.GS2 ---
Today's Communication / Plan
-
-- GI consult for possible ERCP and stent
Assessment / Plan
-
Patient is a 68 yo M POD#1 s/p robotic converted to open subtotal cholecystectomy
Mild tachycardia, BP stable, afebrile
WBC elevated
Mild JAMES
BERNABE drain with concern for bile leak likely from cystic duct stump given subtotal cholecystetcomy. GI consult for consideration of ERCP with stent.
-- GI consult
-- NPO, sips for comfort
-- IVF
-- Pain control: Tylenol, IV Dilaudid PRN
-- Abx: Zosyn
-- GI: Protonix
-- DVT: Lovenox
Subjective Data
-
Date of Service: October 26, 2023
Feeling okay. Reports some indigestion and abdominal pain. No fevers. No nausea or vomiting.
Objective Data
-
Intake and Output
10/25/23 10/26/23 10/27/23
06:59 06:59 06:59
Intake Total 750 / 750
Output Total 848 / 848 150 / 150
Balance -98 / -98 -150 / -150
Intake:
Oral fluids 0 / 0
IV fluids (Total) 750 / 750
NSS 100 / 100
Normosol 400 / 400
Output:
Drain Output (Total) 148 / 148 150 / 150
Right Middle Abdomen Yeison- 148 / 148 150 / 150
Queen A
Urine, Nguyen 700 / 700
Vital Signs
Temp Pulse Resp BP Pulse Ox
98.3 F 101 18 152/87 93
10/26/23 13:23 10/26/23 13:23 10/26/23 13:23 10/26/23 13:23 10/26/23 11:13
Lab Results
04/19/24 06:27
10/26/23 06:27
Calcium 8.3 mg/dl (8.4-10.2) L 10/26/23 06:27
Total Bilirubin 0.8 mg/dl (0.2-1.3) 10/12/23 09:16
AST 27 U/L (17-59) 10/12/23 09:16
ALT 24 U/L (0-50) 10/12/23 09:16
Alkaline Phosphatase 86 U/L (38-126) 10/12/23 09:16
Total Protein 7.1 g/dl (6.3-8.2) 10/12/23 09:16
Albumin 4.4 g/dl (3.5-5.0) 10/12/23 09:16
Physical Exam
-
Gen: NAD
Abd: soft, tender to palpation in RUQ, obese, ND, non-peritoneal, incisions c/d/i - no erythema, ecchymosis or drainage, BERNABE dark bilious
--- NOTE | 2023-10-26 15:41 | CM ---
Patient seen at bedside with also present. Patient reports that he lives alone in a two story home. There are no steps to enter and a flight of steps to the second floor. He currently functions independently. He has no DME and has never had VN
services. He has a prescription plan and uses [facility]. Patient PCP is Dr. Burdick. Patient plan is home with no needs but family are super supportive and he did not anticipate needing any VN supports. CM will continue to follow for
discharge planning needs.
Plan; home with no needs.
--- NOTE | 2023-10-26 15:43 | CON.GI ---
Addendum entered and electronically signed by Sonal Israel MD 10/26/23 16:34:
I saw and examined the patient.
The HAT FINISHING MATERIALS PREPARER's note was reviewed and I agree with the note.
Comment: This is a 68-year-old male who had robotic converted to open cholecystectomy yesterday with Dr. Arrieta for chronic calculus cholecystitis. Patient had a drain and was noted to have increased output through the drain. He also complains of
right upper quadrant pain. We were consulted for possible bile leak and for ERCP with stent placement. Discussed with Dr. Liang patient is scheduled for ERCP today. He is currently on antibiotics with Zosyn, afebrile and white count is minimally
elevated.
Original Note:
Consultation
-
Date/Time Consultation Requested: 10/26/231514
Date/Time Consultation Performed: 10/26/231514
Requesting Provider: Dr. Hernandez
Performing Provider: Dr. Liang/RAEGAN Rivera
Reason for Consultation: bile leak
Medical History
Chief Complaint / HPI
Chief Complaint: abdominal pain
History of Present Illness:
Vipul is a 68 year old male with a past medical history of HTN, hyperlipidemia, COPD, arthritis, fatty liver, cholelithiasis and pancreatitis in August who was had elective cholecystectomy for chronic calculus cholecystitis on 10/25/2023. This
was initially robotic and needed to be converted to open. Surgery contacted us as they were anticipating postoperative bile leak from cystic duct stump. The patient has 19 Yogi right upper quadrant/subhepatic space/cystic duct stump area. This was
draining serosanguineous fluid approximately 30 cc per shift since OR. This am it was 30 cc of serosanguineous drainage from 7-10 am. The patient then had RUQ discomfort around noon and had 280 cc of brown bilious drainage from noon to 3pm. At that
point we were called to evaluate patient for ERCP and stent placement for bile duct leak. The patient has some mild nausea with pain medication administration. He remains NPO. He denies any F, C, V. He does have anticipated post op tenderness with
now some more discomfort in RUQ.
Past Medical History
Past Medical History: COPD, HTN, Hypercholesterolemia and Other (arthritis, fatty liver, pancreatitis)
Past Surgical History: None and Cholecystectomy
Social History
Tobacco: Non-Smoker
Alcohol: Other (up to 8 beers/week. Stopped in Aug)
Drug: None
Family History
Family History: Other (father had pancreatitis. He denies any family history of GI malignancies.)
Allergies / Home Medications
Allergy/AdvReac Type Severity Reaction Status Date / Time
No Known Allergies Allergy Verified 10/25/23 16:15
�Medication �Instructions �Recorded
albuterol sulfate 90 mcg/actuation 2 puff inhalation R QIDPRN PRN sob 08/24/23
aerosol inhaler (ProAir HFA)
fluticasone fur. 200 mcg-umeclid 1 inh inhalation R DAILY COPD 08/24/23
62.5 mcg-vilant 25 mcg
inhalat.powder (Trelegy Ellipta)
lisinopril 10 mg tablet 10 mg PO DAILY Blood Pressure 08/24/23
atorvastatin 10 mg tablet 10 mg PO DAILY High Cholesterol 10/18/23
Review of Systems
-
All other systems: A 12 pt ROS was Negative except as stated above in HPI
Vital Signs
Temp Pulse Resp BP Pulse Ox
98.3 F 101 18 152/87 93
10/26/23 13:23 10/26/23 13:23 10/26/23 13:23 10/26/23 13:23 10/26/23 11:13
Physical Exam
Exam
General: Well Developed, Well Nourished and No Apparent Distress
HEENT: Anicteric
Respiratory: Clear
Cardiac: Regular Rhythm
GI: Soft, Non Distended, Normal Bowel Sounds, Tender (RUQ/upper abd, expected incisional discomfort) and Other (bandage over RUQ, BERNABE drain RUQ with brown bilious fluid)
Musculoskeletal: No Edema
Skin: Warm and Dry
Neuro: AO x 3
Psych: Calm
Results
WBC 15.3 10^3/uL (4.8-10.8) H 10/26/23 06:27
Hgb 15.1 g/dL (13.0-18.0) 10/26/23 06:27
Hct 45.3 % (39.0-52.0) 10/26/23 06:27
MCV 87.8 fL (80.0-94.0) 10/26/23 06:27
Plt Count 100 10^3/uL (130-400) L 10/26/23 06:27
Sodium 134 mmol/L (135-145) L 10/26/23 06:27
Potassium 4.6 mmol/L (3.5-5.1) 10/26/23 06:27
Chloride 103 mmol/L (98-107) 10/26/23 06:27
Carbon Dioxide 24 mmol/L (22-30) 10/26/23 06:27
BUN 23 mg/dl (9-20) H 10/26/23 06:27
Creatinine 1.4 mg/dL (0.7-1.3) H 10/26/23 06:27
Calcium 8.3 mg/dl (8.4-10.2) L 10/26/23 06:27
Total Bilirubin 0.8 mg/dl (0.2-1.3) 10/12/23 09:16
AST 27 U/L (17-59) 10/12/23 09:16
ALT 24 U/L (0-50) 10/12/23 09:16
Alkaline Phosphatase 86 U/L (38-126) 10/12/23 09:16
Diagnostic Image Results:
Prior GI Procedures:
EGD: never had
Colonoscopy: He had a colonoscopy 3-4 years ago at [facility], reportedly normal.
Normal Cologuard
Assessment / Plan
-
Vipul is a 68 year old male with a past medical history of HTN, hyperlipidemia, COPD, arthritis, fatty liver, cholelithiasis and pancreatitis in August who was had elective cholecystectomy for chronic calculus cholecystitis on 10/25/2023. This
was initially robotic and needed to be converted to open. Surgery contacted us as they were anticipating postoperative bile leak from cystic duct stump. Patient initially without any significant BERNABE drainage (30 cc shift) and was only
serosanguineous. Now has changed to bilious drainage and had 280 cc within 3 hrs with increased discomfort.
Impression:
Bile leak
s/p Robotic assisted laparoscopic converted to open fenestrated cholecystectomy 10/25/23
Plan:
-ERCP today with stent placement with Dr. Liang
-NPO
-Continues on Zosyn
-Analgesia
-CBC, LFTs in am
-Further recommendations to be forthcoming.
Data Reviewed
-
Old Records: Reviewed
-
-
Thank you for consultation and allowing me to participate in the patient's care. Please call the plater production GI physician during the after hours with any questions or concerns.
--- NOTE | 2023-10-26 16:19 | PTCARENOTE ---
Provided report to Tequila in GI lab. Pt transported at this time to GI lab. IVF capped at GI request.
[2023-10-26] MEDS: LOPRESSOR 5 MG IV (17:55)
--- NOTE | 2023-10-26 18:55 | PTCARENOTE ---
Received report from Paloma in PACU. Pt arrived back to rm [id number] at this time. AAOx3, denying any pain at this time. BERNABE drain remains in place, draining brown, blood tinged drainage. No change in drainage on drainage sponge around BERNABE drain. No SOB, on
2L of O2 via NC post procedure. Vital signs documented. Call fajardo within reach, will monitor.
[2023-10-26] MEDS: NSS (PRESERVATIVE FREE) 10 ML IV (18:56)
[2023-10-26] MEDS: PROTONIX IV 40 MG IV (18:56)
[2023-10-26] MEDS: LOVENOX 40 MG SC (18:58)
[2023-10-26 20:10] LABS: ALT (SGPT) 36 U/L (0-50); AST (SGOT) 31 U/L (17-59); Albumin 3.6 g/dl (3.5-5.0); Alkaline Phosphatase 90 U/L (38-126); Direct Bilirubin 0.5 mg/dl (0.0-0.4); Total Bilirubin 1.1 mg/dl (0.2-1.3); Total Protein 5.9 g/dl (6.3-8.2)
[2023-10-27] MEDS: NSS 1000 IV ×4 (01:54→20:53)
[2023-10-27] MEDS: ZOSYN 50 IV ×4 (01:55→19:35)
[2023-10-27 03:36] VITALS: BP 117/63
[2023-10-27] MEDS: DILAUDID 0.5 MG IV ×2 (04:35→08:31)
[2023-10-27] MEDS: ANESTHETIC LOZENGE 1 LOZENGE PO (04:35)
[2023-10-27 06:31] LABS: % Basophils 0.2 % (0-2); % Eosinophils 1.3 % (0-6); % Immature Granulocytes 0.6 % (0-0.5); % Lymphocytes 13.1 % (20.5-51.1); % Monocytes 8.1 % (1.7-9.3); % Neutrophils 76.7 % (42.2-75.2); Absolute Eosinophils 0.1 10^3/uL (0-0.7); Absolute Immature Granulocytes 0.1 10^3/uL (0-0.05); Absolute Lymphocytes 1.4 10^3/uL (1.2-3.4); Absolute Monocytes 0.9 10^3/uL (0.1-0.6); Hemoglobin 13.2 g/dL (13.0-18.0); Mean Corpuscular Hgb 29.6 pg (27.0-31.0); Mean Corpuscular Volume 89.7 fL (80.0-94.0); Nucleated Red Blood Cells % 0 % (-); Platelet Count 72 10^3/uL (130-400); Red Blood Cell Count 4.46 10^6/uL (4.70-6.10); Red Cell Dist. Width 14.5 % (11.5-14.5); White Blood Cell Count 10.4 10^3/uL (4.8-10.8)
[2023-10-27 06:40] LABS: ALT (SGPT) 30 U/L (0-50); AST (SGOT) 29 U/L (17-59); Albumin 3.1 g/dl (3.5-5.0); Alkaline Phosphatase 75 U/L (38-126); Blood Urea Nitrogen 23 mg/dl (9-20); Calcium 8.1 mg/dl (8.4-10.2); Carbon Dioxide 22 mmol/L (22-30); Chloride 106 mmol/L (98-107); Direct Bilirubin 0.6 mg/dl (0.0-0.4); Estimated Creatinine Clearance 63 ml/min; Glucose 96 mg/dl (70-99); Potassium 4.4 mmol/L (3.5-5.1); Sodium 134 mmol/L (135-145); Total Bilirubin 1.2 mg/dl (0.2-1.3); Total Protein 5.4 g/dl (6.3-8.2); eGFR 47.23
[2023-10-27 08:15] VITALS: BP 123/71
[2023-10-27] MEDS: SPIRIVA RESPIMAT 2.5 MCG 2 PUFF INH (08:37)
[2023-10-27] MEDS: SYMBICORT 160/4.5 MCG INHALER 2 PUFF INH ×2 (08:38→19:50)
[2023-10-27] MEDS: PROTONIX IV 40 MG IV (08:52)
[2023-10-27] MEDS: NSS (PRESERVATIVE FREE) 10 ML IV (08:53)
--- NOTE | 2023-10-27 08:57 | PTCARENOTE ---
pt aox3, states abd pain is much better, denies sob, n/v, dizziness. reed with brown green output, see mar for pain meds, pt resting
--- NOTE | 2023-10-27 09:02 | W.PN.GI.CBS2 ---
Today's Communication / Plan
-
DC pantoprazole given worsening thrombocytopenia switched him to Pepcid rest as above
Assessment / Plan
-
Vipul is a 68 year old male with a past medical history of HTN, hyperlipidemia, COPD, arthritis, fatty liver, cholelithiasis and pancreatitis in August who was had elective cholecystectomy for chronic calculus cholecystitis on 10/25/2023. This
was initially robotic and needed to be converted to open. Surgery contacted us as they were anticipating postoperative bile leak from cystic duct stump. Patient initially without any significant BERNABE drainage (30 cc shift) and was only
serosanguineous. Now has changed to bilious drainage and had 280 cc within 3 hrs with increased discomfort.
Impression:
Bile leak
s/p Robotic assisted laparoscopic converted to open fenestrated cholecystectomy 10/25/23
Plan:
-Status post ERCP 10/25 with sphincterotomy and stent placement
-Drain output has decreased
-Leukocytosis is improved on antibiotics, afebrile
-He does have worsening thrombocytopenia most likely related to medications will DC his PPI and switched him to Pepcid, may also be related to Zosyn or Lovenox will need to monitor platelets closely and may need hematology consult if persists
-Follow-up with Dr. Liang in 6 weeks
-Postop care per surgery
Will sign off and will be available as needed
Subjective
Subjective
Date of Service: October 27, 2023
Patient feeling better denies abdominal pain. Drain output has decreased. Status post ERCP with stent placement yesterday for bile leak
Objective
Data Reviewed
Laboratory Data:
Laboratory Results
10/27/23 04:32
10/27/23 04:32
Laboratory Results
Total Bilirubin 1.2 mg/dl (0.2-1.3) 10/27/23 04:32
AST 29 U/L (17-59) 10/27/23 04:32
ALT 30 U/L (0-50) 10/27/23 04:32
Alkaline Phosphatase 75 U/L (38-126) 10/27/23 04:32
Vital Signs and I&O:
Vital Signs
Temp Pulse Resp BP Pulse Ox
98.7 F 74 16 123/71 95
10/27/23 08:15 10/27/23 08:45 10/27/23 08:45 10/27/23 08:15 10/27/23 08:45
I&O
10/26/23 10/27/23 10/28/23
06:59 06:59 06:59
Intake Total 750 / 750 2580 / 2580
Output Total 848 / 848 2105 / 2105
Balance -98 / -98 475 / 475
10/26/23 ERCP
Impression: - A bile leak was found.
- A biliary sphincterotomy was performed.
- One plastic stent was placed into the common hepatic
duct.
Physical Exam
Physical Exam
Cardiology: Normal Sinus Rhythm
Pulmonary: Clear
GI: Soft, Non Distended, Tender (Mild tenderness in the right upper quadrant at the site of the drain) and Normal Bowel Sounds
--- NOTE | 2023-10-27 09:44 | W.PN.GS2 ---
Today's Communication / Plan
-
-- Clears
-- Abx: Zosyn
-- GI consult, appreciate help
Assessment / Plan
-
Patient is a 68 yo M POD#2 s/p robotic converted to open subtotal cholecystectomy PPD#1 s/p ERCP with stent placement
Tachycardia improved, BP stable, afebrile
WBC normalized
JAMES
BERNABE drain with continued bilious output, trend volumes will remain in place for weeks
-- Clears
-- Pain control: Tylenol, IV Dilaudid PRN
-- Abx: Zosyn
-- Home inhalers
-- GI: Protonix
-- DVT: Lovenox
-- GI consult, appreciate help
Subjective Data
-
Date of Service: October 27, 2023
No complaints. Denies worsening pain. No nausea or vomiting. Afebrile.
Objective Data
-
Intake and Output
10/26/23 10/27/23 10/28/23
06:59 06:59 06:59
Intake Total 750 / 750 2580 / 2580
Output Total 848 / 848 2105 / 2105
Balance -98 / -98 475 / 475
Intake:
Oral fluids 0 / 0
IV fluids (Total) 750 / 750 2380 / 2380
NSS 100 / 100
Normosol 400 / 400 100 / 100
IV piggybacks 200 / 200
Output:
Drain Output (Total) 148 / 148 605 / 605
Right Middle Abdomen Yeison- 148 / 148 605 / 605
Queen A
Urine, Nguyen 700 / 700 1500 / 1500
Vital Signs
Temp Pulse Resp BP Pulse Ox
98.7 F 74 16 123/71 95
10/27/23 08:15 10/27/23 08:45 10/27/23 08:45 10/27/23 08:15 10/27/23 08:45
Lab Results
10/27/23 04:32
10/27/23 04:32
Calcium 8.1 mg/dl (8.4-10.2) L 10/27/23 04:32
Total Bilirubin 1.2 mg/dl (0.2-1.3) 10/27/23 04:32
Direct Bilirubin 0.6 mg/dl (0.0-0.4) H 10/27/23 04:32
AST 29 U/L (17-59) 10/27/23 04:32
ALT 30 U/L (0-50) 10/27/23 04:32
Alkaline Phosphatase 75 U/L (38-126) 10/27/23 04:32
Total Protein 5.4 g/dl (6.3-8.2) L 10/27/23 04:32
Albumin 3.1 g/dl (3.5-5.0) L 10/27/23 04:32
Physical Exam
-
Gen: NAD
Abd: soft, NT/ND, non-peritoneal, incisions c/d/i - no erythema, ecchymosis or drainage, BERNABE bilious
[2023-10-27] MEDS: DILAUDID 1 MG IV ×2 (11:50→19:45)
--- NOTE | 2023-10-27 14:28 | PTCARENOTE ---
pt oob to chair, states that pain is tolerable, had broth this am and ordered more for lunch. denies n/v, states that he does not feel hungry. resting, call fajardo in reach
[2023-10-27 16:05] VITALS: BP 138/67
[2023-10-27] MEDS: LOVENOX 40 MG SC (16:59)
--- NOTE | 2023-10-27 18:20 | PTCARENOTE ---
Received Pt from previous RN upon shift. Pt remains stable and offers no complaints at this time. Will cont to assess.
[2023-10-27] MEDS: PEPCID 20 MG PO (19:34)
[2023-10-27 23:40] VITALS: BP 138/83
[2023-10-28] MEDS: ZOSYN 50 IV ×4 (02:00→20:28)
[2023-10-28] MEDS: NSS 1000 IV ×2 (05:31→13:49)
[2023-10-28 07:03] LABS: Hematocrit 40.4 % (39.0-52.0); Hemoglobin 13.4 g/dL (13.0-18.0); Mean Corp Hgb Conc. 33.2 g/dL (33.0-37.0); Mean Corpuscular Hgb 29.3 pg (27.0-31.0); Mean Corpuscular Volume 88.2 fL (80.0-94.0); Mean Platelet Volume 9.7 fL (7.4-10.4); Platelet Count 73 10^3/uL (130-400); Red Blood Cell Count 4.58 10^6/uL (4.70-6.10); Red Cell Dist. Width 14.3 % (11.5-14.5); White Blood Cell Count 9.5 10^3/uL (4.8-10.8)
[2023-10-28 07:20] VITALS: BP 139/75
[2023-10-28 07:45] LABS: ALT (SGPT) 27 U/L (0-50); AST (SGOT) 33 U/L (17-59); Albumin 3.2 g/dl (3.5-5.0); Alkaline Phosphatase 78 U/L (38-126); Blood Urea Nitrogen 14 mg/dl (9-20); Calcium 8.3 mg/dl (8.4-10.2); Carbon Dioxide 21 mmol/L (22-30); Chloride 106 mmol/L (98-107); Estimated Creatinine Clearance 84 ml/min; Glucose 79 mg/dl (70-99); Sodium 133 mmol/L (135-145); Total Bilirubin 1.5 mg/dl (0.2-1.3); Total Protein 5.6 g/dl (6.3-8.2); eGFR > 60.00
[2023-10-28] MEDS: SPIRIVA RESPIMAT 2.5 MCG 2 PUFF INH (08:28)
[2023-10-28] MEDS: SYMBICORT 160/4.5 MCG INHALER 2 PUFF INH ×2 (08:29→20:39)
[2023-10-28] MEDS: PEPCID 20 MG PO ×2 (08:38→20:28)
[2023-10-28] MEDS: FLUSH (NSS) 1 FLUSH IV ×4 (08:38→15:58)
[2023-10-28] MEDS: DILAUDID 0.5 MG IV ×3 (11:47→20:27)
--- NOTE | 2023-10-28 13:45 | W.PN.GS2 ---
Addendum entered and electronically signed by Leonard Hernandez MD 10/28/23 14:08:
Patient seen and examined. Agree with assessment plan as documented below.
No complaints. Denies worsening abdominal pain. No nausea or vomiting. No fevers or chills.
Gen: NAD
Abd: soft, obese, NT/ND, non-peritoneal, incisions c/d/i - no erythema, ecchymosis or drainage, BERNABE bilious
Patient is a 68 yo M POD#3 s/p robotic converted to open subtotal cholecystectomy PPD#2 s/p ERCP with stent placement
BP stable, afebrile
WBC normalized
JAMES - improving
Bilirubin slightly up, trend
BERNABE drain with continued bilious output, trend volumes will remain in place for weeks
-- Advance diet to fulls, NPO PM
-- Pain control: Tylenol, IV Dilaudid PRN
-- Abx: Zosyn
-- Home inhalers
-- GI: Protonix
-- DVT: Lovenox
-- GI consult, appreciate help, will need to discuss output volume and if repeat intervention necessary
Original Note:
Today's Communication / Plan
-
fulls
continue drain
Assessment / Plan
-
Patient is a 68 yo M POD#3 s/p robotic converted to open subtotal cholecystectomy PPD#2 s/p ERCP with stent placement
BP stable, afebrile
WBC normalized
JAMES - improving
BERNABE drain with continued bilious output, trend volumes will remain in place for weeks
-- Advance diet to fulls
-- Pain control: Tylenol, IV Dilaudid PRN
-- Abx: Zosyn
-- Home inhalers
-- GI: Protonix
-- DVT: Lovenox
-- GI consult, appreciate help
Subjective Data
-
Date of Service: October 28, 2023
Patient feels better today. He has no worsening abdominal pain. He denies nausea or vomiting. He tolerated fulls.
Objective Data
-
Intake and Output
10/27/23 10/28/23 10/29/23
06:59 06:59 06:59
Intake Total 2580 / 2580 3735 / 3735
Output Total 2105 / 2105 2440 / 2440
Balance 475 / 475 1295 / 1295
Intake:
Oral fluids 1140 / 1140
IV fluids (Total) 2380 / 2380 2495 / 2495
Normosol 100 / 100
IV piggybacks 200 / 200 100 / 100
Output:
Drain Output (Total) 605 / 605 440 / 440
Right Middle Abdomen Yeison- 605 / 605 440 / 440
Queen A
Urine, Nguyen 1500 / 1500
Urine, Voided 2000 / 1999
Vital Signs
Temp Pulse Resp BP Pulse Ox
98.2 F 80 16 139/75 95
10/28/23 07:20 10/28/23 08:34 10/28/23 08:34 10/28/23 07:20 10/28/23 08:37
Lab Results
10/28/23 05:21
10/28/23 05:21
Calcium 8.3 mg/dl (8.4-10.2) L 10/28/23 05:21
Total Bilirubin 1.5 mg/dl (0.2-1.3) H 10/28/23 05:21
Direct Bilirubin 0.6 mg/dl (0.0-0.4) H 10/27/23 04:32
AST 33 U/L (17-59) 10/28/23 05:21
ALT 27 U/L (0-50) 10/28/23 05:21
Alkaline Phosphatase 78 U/L (38-126) 10/28/23 05:21
Total Protein 5.6 g/dl (6.3-8.2) L 10/28/23 05:21
Albumin 3.2 g/dl (3.5-5.0) L 10/28/23 05:21
Physical Exam
-
Gen: NAD
Abd: soft, NT/ND, non-peritoneal, incisions c/d/i - no erythema, ecchymosis or drainage, BERNABE bilious
[2023-10-28 15:20] VITALS: BP 129/80
--- NOTE | 2023-10-28 15:50 | PTCARENOTE ---
Pt AAO x3, FENTON well, OOB in chair for shift, lesli well; encouraging OOB activity. VSS. On room air-pulse ox 97%, no SOB noted. Abd obese, firm, BS (+); lesli clear liquids; to start full liquids for dinner. Rt abd BERNABE drain P/I large amts dark bile
secretions. Voiding large amts clear yellow urine in urinal. Abd incision sites x5 intact; Rt upper abd Aquacell and BERNABE site dsgs D/I; 3 small incisions with Dermabond BRYAN; D/I. Pt c/o occasional abd discomfort; good effect with IV Dilaudid.
Resting comfortably at present. Will continue to monitor.
[2023-10-28] MEDS: LOVENOX 40 MG SC (17:32)
[2023-10-28] MEDS: FLUSH (NSS) 2 FLUSH IV (20:29)
[2023-10-28 23:17] VITALS: BP 145/70
[2023-10-29] MEDS: DILAUDID 0.5 MG IV ×5 (00:50→19:59)
[2023-10-29] MEDS: ZOSYN 50 IV ×4 (01:10→19:57)
[2023-10-29] MEDS: FLUSH (NSS) 2 FLUSH IV (05:48)
[2023-10-29 07:20] VITALS: BP 171/82
[2023-10-29] MEDS: SYMBICORT 160/4.5 MCG INHALER 2 PUFF INH ×2 (07:39→19:20)
[2023-10-29] MEDS: SPIRIVA RESPIMAT 2.5 MCG 2 PUFF INH (07:39)
[2023-10-29 09:21] LABS: ALT (SGPT) 23 U/L (0-50); AST (SGOT) 25 U/L (17-59); Albumin 3.5 g/dl (3.5-5.0); Alkaline Phosphatase 84 U/L (38-126); Blood Urea Nitrogen 10 mg/dl (9-20); Calcium 8.8 mg/dl (8.4-10.2); Carbon Dioxide 25 mmol/L (22-30); Chloride 102 mmol/L (98-107); Estimated Creatinine Clearance 92 ml/min; Glucose 87 mg/dl (70-99); Potassium 3.9 mmol/L (3.5-5.1); Sodium 133 mmol/L (135-145); Total Bilirubin 1.2 mg/dl (0.2-1.3); Total Protein 6.1 g/dl (6.3-8.2); eGFR > 60.00
[2023-10-29] MEDS: PEPCID 20 MG PO ×2 (09:22→19:57)
[2023-10-29 15:15] VITALS: BP 141/73
[2023-10-29 15:20] VITALS: BP 141/73
--- NOTE | 2023-10-29 15:54 | VNURNOTE ---
Home Health Liaison met with patient at 1430 to discuss [facility] nurse/therapy, visits, schedule and homebound status. Patient is agreeable and understands that visits at home will be 2-3 x per week to assess and teach medical management and BERNABE drain
care.
[facility] brochure provided with contact information. Patient is aware that [facility] will contact him for start of care in 1-2 days after discharge from .
[facility] referral completed in [facility].
--- NOTE | 2023-10-29 16:35 | W.PN.SURGUPD ---
Surgical Update
Surgical Update
pt seen in follow up
pt reports doing well, mild lingering post op incisional pain, no nausea
states dramatically less BERNABE output today while NPO
ABD: soft, obese, mild incisional tenderness
BERNABE with ~30mL bilious fluid
maintain NPO x h20/ice chips for comfort given improvement in BERNABE output
continue IVFs
detailed discussions with patient reviewing operation/ERCP and ongoing management of bile leak
[2023-10-29] MEDS: D5/0.45%NSS with KCL 20 MEQ 1000 IV (17:13)
[2023-10-29] MEDS: LOVENOX 40 MG SC (17:13)
[2023-10-29 23:46] VITALS: BP 158/87
[2023-10-30] MEDS: ZOSYN 50 IV ×4 (02:28→20:44)
[2023-10-30] MEDS: D5/0.45%NSS with KCL 20 MEQ 1000 IV ×3 (04:07→20:30)
[2023-10-30] MEDS: DILAUDID 0.5 MG IV ×3 (05:28→20:45)
--- NOTE | 2023-10-30 07:05 | W.PN.GS2 ---
Today's Communication / Plan
-
`
Assessment / Plan
-
Assessment: Patient is a 68 yo M POD#5 s/p robotic converted to open fenestrated cholecystectomy PPD#4 s/p ERCP with stent placement
BP stable, afebrile
WBC normalized
JAMES - resolved
BERNABE drain with continued bilious output-a bit less while NPO but still few 100mL over last 24hrs
Plan:
-- hold on NPO x ice chips/sips and monitor BERNABE outputs today; probable PO challenge tomorrow with resumption of low fat diet
-- Pain control: Tylenol, IV Dilaudid PRN
-- Abx: Zosyn
-- Home inhalers
-- GI: Protonix
-- DVT: Lovenox
Subjective Data
-
Date of Service: October 30, 2023
pt seen and examined
post op pain controlled
+fl and BM
no nausea
lesli sips/ice chips
Objective Data
-
Intake and Output
10/29/23 10/30/23 10/31/23
06:59 06:59 06:59
Intake Total 2380 / 2380
Output Total 3095 / 3095 240 / 240
Balance -715 / -715 -240 / -240
Intake:
Oral fluids 1320 / 1320
IV fluids (Total) 960 / 960
IV piggybacks 100 / 100
Output:
Drain Output (Total) 545 / 545 115 / 115
Right Middle Abdomen Yeison- 545 / 545 115 / 115
Queen A
Urine, Voided 2550 / 2550 125 / 125
Vital Signs
Temp Pulse Resp BP Pulse Ox
98 F 74 20 158/87 96
10/29/23 23:46 10/29/23 23:46 10/29/23 23:46 10/29/23 23:46 10/29/23 23:46
Lab Results
10/28/23 05:21
10/29/23 08:04
Calcium 8.8 mg/dl (8.4-10.2) 10/29/23 08:04
Total Bilirubin 1.2 mg/dl (0.2-1.3) 10/29/23 08:04
Direct Bilirubin 0.6 mg/dl (0.0-0.4) H 10/27/23 04:32
AST 25 U/L (17-59) 10/29/23 08:04
ALT 23 U/L (0-50) 10/29/23 08:04
Alkaline Phosphatase 84 U/L (38-126) 10/29/23 08:04
Total Protein 6.1 g/dl (6.3-8.2) L 10/29/23 08:04
Albumin 3.5 g/dl (3.5-5.0) 10/29/23 08:04
Physical Exam
-
NAD AAOx3
ABD: soft, ND, mild incisional tenderness
aquacel dressing removed - skin edges closed, no erythema, no drainage
BERNABE bilious ~10-15mL
[2023-10-30] MEDS: SYMBICORT 160/4.5 MCG INHALER 2 PUFF INH ×2 (07:49→19:19)
[2023-10-30] MEDS: SPIRIVA RESPIMAT 2.5 MCG 2 PUFF INH (07:50)
[2023-10-30 07:55] VITALS: BP 148/91
[2023-10-30] MEDS: PEPCID 20 MG PO ×2 (09:00→20:45)
[2023-10-30] MEDS: TYLENOL 650 MG PO (09:09)
[2023-10-30 09:12] VITALS: BMI 40.7
[2023-10-30] MEDS: ULTRAM 50 MG PO (10:43)
--- NOTE | 2023-10-30 10:58 | CM ---
Pt has Bryce mcgovern .
Offered VN he requested [facility] . Margret saw and aset up VN for at home.
Daughter supportive. Will drive him home at dc.
Will continue with dc planning as needed.
PLAN Home with [facility]
--- NOTE | 2023-10-30 14:29 | PN.CDI ---
CDI
- -
CDI:
Physician Documentation Request
Admit Date: 10/25/23 12:53
Dear Doctor Berny,
Please review the following and provide your response in the progress notes.
Clinical Indicators:
Pt admitted with chronic Cholecystitis for surgery planned
Trended Sodium labs are below/Pt has been getting IVFs and has been NPO
10/26/23 10/27/23 10/28/23
06:27 04:32 05:21
Sodium 134 L 134 L 133 L
10/29/23
08:04
Sodium 133 L
Based on the above, could you clarify in the progress notes, the appropriate diagnosis, if significant, that supports the above abnormalities and additional evaluation, monitoring and/or treatment rendered:
Hyponatremia
Abnormal lab value only
Other
Use of terms such as suspected, likely, concern for, or probable (associated with a specific diagnosis that is being evaluated, monitored, or treated as if it exists) are acceptable and can be coded in the inpatient setting, when documented at the
time of discharge.
Thank you,
Chantle Michael RN
CDI Specialist
[place] [facility]
Please use your independent medical judgment in providing your response.
--- NOTE | 2023-10-30 14:39 | PN.CDI ---
CDI
- -
CDI:
Physician Documentation Request
Admit Date: 10/25/23 12:53
Dear Doctor Berny,
Please review the following and provide your response in the progress notes.
Clinical Indicators:
The diagnosis of Perforated acute and chronic cholecystitis./Multiple impacted gallstones with chronic abscesses present. was included in the signed surgical gallbladder pathology on 10/29.
Additional clinical indicators in the chart include:
Pt admitted with chronic calculous cholecystitis s/p open cholecystectomy
Post op note, 'Severe chronic calculus cholecystitis with gallbladder completely encased within omental/colonic/periduodenal adhesions. Gallbladder completely full of small gallstones. Evidence of prior gallbladder perforation as there were
gallstones present within omental adhesions and outside gallbladder wall during initial mobilization.Anticipating postoperative bile leak from cystic duct stump...'
Pt is currently on Zosyn did have elevated WBC 10/25 of 15.3
Please indicate in your progress notes if you are in agreement that the above diagnosis is valid for this patient:
____ - Perforated acute and chronic cholecystics/ gallbladder abscesses a valid diagnosis (Please include it in your progress notes)
____ - Perforated acute and chronic cholecystics/ gallbladder abscesses is not a valid diagnosis for this patient
____ - Other
Use of terms such as suspected, likely, concern for, or probable are acceptable for a diagnosis that is being evaluated, monitored or treated as if it exists and can be coded in the inpatient setting, when documented at the time of discharge.
Thank you,
Chantel Michael RN
CDI Specialist
[place] [facility]
Please use your independent medical judgment in providing your response.
[2023-10-30 15:55] VITALS: BP 147/78
[2023-10-30] MEDS: LOVENOX SC (16:50)
[2023-10-30 23:53] VITALS: BP 155/83
[2023-10-31] MEDS: ZOSYN 50 IV (01:37)
[2023-10-31] MEDS: DILAUDID 0.5 MG IV (02:42)
[2023-10-31 05:13] LABS: Hemoglobin 13.7 g/dL (13.0-18.0); Mean Corp Hgb Conc. 35.1 g/dL (33.0-37.0); Mean Corpuscular Volume 82.6 fL (80.0-94.0); Mean Platelet Volume 9.3 fL (7.4-10.4); Platelet Count 105 10^3/uL (130-400); Red Blood Cell Count 4.72 10^6/uL (4.70-6.10); Red Cell Dist. Width 13.7 % (11.5-14.5); White Blood Cell Count 8.2 10^3/uL (4.8-10.8)
[2023-10-31 05:41] LABS: ALT (SGPT) 22 U/L (0-50); AST (SGOT) 28 U/L (17-59); Albumin 3.6 g/dl (3.5-5.0); Alkaline Phosphatase 116 U/L (38-126); Blood Urea Nitrogen 8 mg/dl (9-20); Calcium 9.1 mg/dl (8.4-10.2); Carbon Dioxide 22 mmol/L (22-30); Chloride 102 mmol/L (98-107); Estimated Creatinine Clearance 92 ml/min; Glucose 98 mg/dl (70-99); Potassium 3.8 mmol/L (3.5-5.1); Sodium 135 mmol/L (135-145); Total Bilirubin 1.2 mg/dl (0.2-1.3); Total Protein 6.3 g/dl (6.3-8.2); eGFR > 60.00
--- NOTE | 2023-10-31 07:12 | W.PN.GS2 ---
Today's Communication / Plan
-
`
Assessment / Plan
-
Assessment: Patient is a 68 yo M POD#6 s/p robotic converted to open fenestrated cholecystectomy PPD#5 s/p ERCP with stent placement
pt found to have evidence of prior walled off/phlegmonous perforated acute cholecystitis and chronic cholecystitis there was no abscess
hyponatremia - resolved on today's labs
AFVSS
doing well with control of expected post op bile leak
Plan:
-- resumption of low fat diet
-- multimodal pain control options
-- observe of abx
-- Home inhalers
-- GI: Protonix
-- DVT: Lovenox
probable d/c home tomorrow with BERNABE in place
Subjective Data
-
Date of Service: October 31, 2023
pt seen and examined
overall doing well
pulled on drain site this AM which caused some pain but feeling better
no nausea
Objective Data
-
Intake and Output
10/30/23 10/31/23 11/01/23
06:59 06:59 06:59
Intake Total 1300 / 1300 360 / 360
Output Total 775 / 775 1370 / 1370
Balance 525 / 525 -1010 / -1010
Intake:
Oral fluids 0 / 0 360 / 360
IV fluids (Total) 1200 / 1200
IV piggybacks 100 / 100
Output:
Drain Output (Total) 350 / 350 370 / 370
Right Middle Abdomen Yeison- 350 / 350 370 / 370
Queen A
Urine, Voided 425 / 425 1000 / 1000
Other:
Number of approximated MODERATE 1
amounts of urine
Vital Signs
Temp Pulse Resp BP Pulse Ox
97.7 F 61 19 155/83 98
10/30/23 23:53 10/30/23 23:53 10/30/23 23:53 10/30/23 23:53 10/30/23 23:53
Lab Results
10/31/23 04:41
10/31/23 04:41
Calcium 9.1 mg/dl (8.4-10.2) 10/31/23 04:41
Total Bilirubin 1.2 mg/dl (0.2-1.3) 10/31/23 04:41
Direct Bilirubin 0.6 mg/dl (0.0-0.4) H 10/27/23 04:32
AST 28 U/L (17-59) 10/31/23 04:41
ALT 22 U/L (0-50) 10/31/23 04:41
Alkaline Phosphatase 116 U/L (38-126) 10/31/23 04:41
Total Protein 6.3 g/dl (6.3-8.2) 10/31/23 04:41
Albumin 3.6 g/dl (3.5-5.0) 10/31/23 04:41
Physical Exam
-
NAD AAOx3
ABD: soft, ND, mild incisional tenderness
incisions clean, no open wounds, no drainage
BERNABE with light bilious outputs
[2023-10-31] MEDS: SYMBICORT 160/4.5 MCG INHALER 2 PUFF INH ×2 (07:52→20:26)
[2023-10-31] MEDS: SPIRIVA RESPIMAT 2.5 MCG 2 PUFF INH (07:52)
[2023-10-31 07:55] VITALS: BP 139/75
[2023-10-31] MEDS: PEPCID 20 MG PO ×2 (08:48→20:02)
[2023-10-31] MEDS: ROXICODONE 5 MG PO ×3 (08:48→20:03)
[2023-10-31 15:55] VITALS: BP 138/73
--- NOTE | 2023-10-31 16:45 | PTCARENOTE ---
Received patient AAOx3. IVF capped as ordered. Pt tolerated low fat diet. OOB to chair an ambulating in room without difficulty. Complained of pain in abdominal incisions an BERNABE site. Medicated with Roxicodone with relief. Made patient comfortable.
Cont to assess patient status.
--- NOTE | 2023-10-31 17:16 | CM ---
met with patient at bedside.he is po fernando and po ercp and stent placment.off abx,tolerating low fat diet.Plan:tentative dc hme tomorrow with VN. call from adam at [facility] [phone] for any additonal dc needs.
[2023-10-31] MEDS: LOVENOX SC (17:54)
[2023-10-31 23:45] VITALS: BP 130/72
[2023-11-01] MEDS: ROXICODONE 5 MG PO ×5 (00:04→19:45)
[2023-11-01] MEDS: DILAUDID 0.5 MG IV (01:31)
[2023-11-01] MEDS: ANESTHETIC LOZENGE 1 LOZENGE PO (06:06)
[2023-11-01 07:35] VITALS: BP 151/71
[2023-11-01] MEDS: SPIRIVA RESPIMAT 2.5 MCG 2 PUFF INH (07:44)
[2023-11-01] MEDS: SYMBICORT 160/4.5 MCG INHALER 2 PUFF INH ×2 (07:44→19:51)
[2023-11-01] MEDS: PEPCID 20 MG PO ×2 (08:30→19:45)
--- NOTE | 2023-11-01 10:57 | W.PN.GS2 ---
Addendum entered and electronically signed by Angelito Arrieta MD 11/01/23 11:38:
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
overall he feels well. mild post op incisional pain - controlled
lesli low fat diet
AFVSS
ABD: soft, ND, mild incisional tenderness
incisions all healing nicely - no wounds, drainage, or erythema
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
A/P: doing well post op - bile leak controlled and BERNABE outputs essentially unchanged with low fat diet
will continue to observe off abx therapy and repeat CBC tomorrow
low fat diet as tolerated
maintain BERNABE
thrombocytopenia post op - while on zosyn now improving - repeat CBC tomorrow
Original Note:
Today's Communication / Plan
-
Continue BERNABE
Assessment / Plan
-
Assessment: Patient is a 68 yo M POD#7 s/p robotic converted to open fenestrated cholecystectomy PPD#6 s/p ERCP with stent placement
pt found to have evidence of prior walled off/phlegmonous perforated acute cholecystitis and chronic cholecystitis there was no abscess
AFVSS
doing well with control of expected post op bile leak
Plan:
-- continue low fat diet
-- multimodal pain control options
-- follow off abx
-- Home inhalers
-- Continue BERNABE drain, will remain in place upon d/c
-- GI ppx: Protonix
-- DVT ppx: Lovenox
probable d/c home tomorrow with BERNABE in place
Subjective Data
-
Date of Service: November 01, 2023
Patient seen and examined with Dr. Arritea. Denies n/v. Some leaking around BERNABE site. Pain well managed.
Objective Data
-
Intake and Output
10/31/23 11/01/23 11/02/23
06:59 06:59 06:59
Intake Total 360 / 360 1380 / 1380
Output Total 1370 / 1370 285 / 285
Balance -1010 / -1010 1095 / 1095
Intake:
Oral fluids 360 / 360 1380 / 1380
Output:
Drain Output (Total) 370 / 370 85 / 85
Right Middle Abdomen Yeison- 370 / 370 85 / 85
Queen A
Urine, Voided 1000 / 1000 200 / 200
Other:
Number of approximated MODERATE 1 2
amounts of urine
Vital Signs
Temp Pulse Resp BP Pulse Ox
97.4 F 78 16 151/71 98
11/01/23 07:35 11/01/23 07:49 11/01/23 07:49 11/01/23 07:35 11/01/23 08:30
Lab Results
10/31/23 04:41
10/31/23 04:41
Calcium 9.1 mg/dl (8.4-10.2) 10/31/23 04:41
Total Bilirubin 1.2 mg/dl (0.2-1.3) 10/31/23 04:41
Direct Bilirubin 0.6 mg/dl (0.0-0.4) H 10/27/23 04:32
AST 28 U/L (17-59) 10/31/23 04:41
ALT 22 U/L (0-50) 10/31/23 04:41
Alkaline Phosphatase 116 U/L (38-126) 10/31/23 04:41
Total Protein 6.3 g/dl (6.3-8.2) 10/31/23 04:41
Albumin 3.6 g/dl (3.5-5.0) 10/31/23 04:41
Physical Exam
-
NAD AAOx3
ABD: soft, ND, mild incisional tenderness
incisions clean, well approximated, no open wounds, no drainage
BERNABE with light bilious outputs
[2023-11-01 15:07] VITALS: BP 133/71
[2023-11-01] MEDS: LOVENOX SC (17:30)
[2023-11-01 23:32] VITALS: BP 151/78
[2023-11-02 04:58] LABS: Hematocrit 38.1 % (39.0-52.0); Hemoglobin 13.3 g/dL (13.0-18.0); Mean Corp Hgb Conc. 34.9 g/dL (33.0-37.0); Mean Corpuscular Hgb 28.9 pg (27.0-31.0); Mean Corpuscular Volume 82.8 fL (80.0-94.0); Mean Platelet Volume 9.3 fL (7.4-10.4); Platelet Count 91 10^3/uL (130-400); Red Cell Dist. Width 13.7 % (11.5-14.5); White Blood Cell Count 7.8 10^3/uL (4.8-10.8)
[2023-11-02] MEDS: ROXICODONE 5 MG PO (05:47)
[2023-11-02 07:20] VITALS: BP 119/86
[2023-11-02] MEDS: SPIRIVA RESPIMAT 2.5 MCG 2 PUFF INH (07:39)
[2023-11-02] MEDS: SYMBICORT 160/4.5 MCG INHALER 2 PUFF INH (07:39)
[2023-11-02] MEDS: PEPCID 20 MG PO (08:06)
--- NOTE | 2023-11-02 11:12 | W.PN.GS2 ---
Today's Communication / Plan
-
Dispo planning
Assessment / Plan
-
Assessment: Patient is a 68 yo M POD#8 s/p robotic converted to open fenestrated cholecystectomy PPD#7 s/p ERCP with stent placement
intraoperatively pt found to have evidence of prior walled off/phlegmonous perforated acute cholecystitis and chronic cholecystitis there was no abscess
AFVSS
Progressing well. BERNABE outputs no longer bilious.
Plan:
-- continue low fat diet
-- multimodal pain control options
-- follow off abx
-- Home inhalers
-- Continue BERNABE drain, will remain in place upon d/c
-- GI ppx: Protonix
-- DVT ppx: Lovenox
Discharge today
Subjective Data
-
Date of Service: November 02, 2023
Patient seen and examined at bedside with Dr. Mccoy. Denies n/v. Tolerating diet. Passing flatus/stools. Minimal pain.
Objective Data
-
Intake and Output
11/01/23 11/02/23 11/03/23
06:59 06:59 06:59
Intake Total 1380 / 1380 1080 / 1080
Output Total 285 / 285 720 / 720
Balance 1095 / 1095 360 / 360
Intake:
Oral fluids 1380 / 1380 1080 / 1080
Output:
Drain Output (Total) 85 / 85 70 / 70
Right Middle Abdomen Yeison- 85 / 85 70 / 70
Queen A
Urine, Voided 200 / 200 650 / 650
Other:
Number of approximated MODERATE 2 2
amounts of urine
Vital Signs
Temp Pulse Resp BP Pulse Ox
98.1 F 90 16 119/86 97
11/02/23 07:20 11/02/23 07:43 11/02/23 07:43 11/02/23 07:20 11/02/23 10:22
Lab Results
11/02/23 04:40
10/31/23 04:41
Calcium 9.1 mg/dl (8.4-10.2) 10/31/23 04:41
Total Bilirubin 1.2 mg/dl (0.2-1.3) 10/31/23 04:41
Direct Bilirubin 0.6 mg/dl (0.0-0.4) H 10/27/23 04:32
AST 28 U/L (17-59) 10/31/23 04:41
ALT 22 U/L (0-50) 10/31/23 04:41
Alkaline Phosphatase 116 U/L (38-126) 10/31/23 04:41
Total Protein 6.3 g/dl (6.3-8.2) 10/31/23 04:41
Albumin 3.6 g/dl (3.5-5.0) 10/31/23 04:41
Physical Exam
-
NAD AAOx3
ABD: soft, ND, mild incisional tenderness
incisions clean, well approximated, no open wounds, no drainage
BERNABE with serous outputs
--- NOTE | 2023-11-02 11:18 | W.DCSUMMARY ---
Discharge Summary
Discharge Data
Date of Admission: 10/25/23
Date of Discharge: 11/02/23
-
Pending Results: No
Hospital Course
Mr Ruvalcaba is a 68 yo male who initially presented in August of this year with postprandial epigastric and right upper quadrant pain and nausea/vomiting. He was found to have pancreatitis with diffuse thickening of gallbladder with phlegmonous acute
calculus cholecystitis. He was managed with IV fluids, bowel rest and supportive care utilizing empiric antibiotics and he responded well. Interval imaging showed significant improvement in previous inflammatory changes of the gallbladder and he
was brought to the OR for planned robotic assisted laparoscopic cholecystectomy. The procedure was converted to open subtotal cholecystectomy given operative findings of severe chronic calculus cholecystitis with the gallbladder completely encased
within omental/colonic/periduodenal adhesions. There was evidence of prior gallbladder perforation as there were gallstones present within omental adhesions and outside gallbladder wall during initial mobilization.
A BERNABE drain was left in place post operatively with concern for bile leak from cystic duct stump given subtotal cholecystectomy. GI evaluated the patient and preformed ERCP with leak found and placement of stent within the common bile duct. Post
operatively, he had noted mild acute kidney injury which resolved with IVF and supportive measures. He was continued on IV antibiotics for 5 days post operatively with no leukocytosis, fevers or signs of infection noted after discontinuation. Diet
was able to be slowly advanced and well tolerated. BERNABE outputs gradually cleared and were nonbilious on date of discharge. He was discharged on post op day 8 with the BERNABE in place for outpatient follow up for eventual drain and stent removal.
Discharge Plan
-
Patient Disposition: Home (Routine Discharge)
Discharge Diagnosis/Procedures: Robotic assisted laparoscopic cholecystectomy
Condition: Good
Diet: As tolerated and Low Fat
Additional Diets: Smaller meals if you notice abdominal bloating and distention
Activity: No strenuous activity
Additional Activity: Do not lift over 15 lbs
Driving Restrictions: No driving 2 to 3 days or if using narcotics
Bathing Restrictions: OK to Shower
Other Services: VN
Wound Care: Glue at surgical sites typically peels off in 2 to 3 weeks
Activity Restrictions/Additional Instructions:
�Angelito Arrieta MD LOCATED WITHIN [facility] General Surgery
[facility]
[address], [address]
[place] [address]
[phone]
Post-Operative Instructions for Gallbladder Surgery
The incision sites are sealed with a surgical glue dressing.� It is safe to shower at any time after surgery when the glue is dry.� Let shower water run over the incisions and then pat dry.
Glue dressing typically peels off in 2-3 weeks.
Abdominal/incisional pain and discomfort, shoulder/scapular pain, bloating, and mild nausea, as well as bruising/stiffness and swelling at the incision sites are common after surgery.� If felt to be excessive, notify us.
Please start postoperative pain management using over the counter medications such as Tylenol and Ibuprofen, per instructions on the bottle, as long as there are no medical reasons why you cannot take these medications.
Ice the incisions sites for 20 minutes every hour or so to help with postoperative incisional pain and reduce postoperative surgical site swelling.� Take care NOT to get an ice burn on the skin surface.
A warm heating pad is often helpful to alleviate shoulder/scapular back pains after laparoscopic procedures.� This pain typically dissipates 24-72hrs post op.
Transition to a low fat diet as tolerated after surgery if not experiencing postoperative nausea or significant bloating/distention.� Some fatty food intolerance may occur shortly after surgery (cramps,bloating, nausea,diarrhea with fat intake).
Constipation is common following surgery and postoperative narcotic use.� May use a stool softener such as Colace (100 mg 2x day) to prevent constipation
If no BM 24hrs after surgery, recommend starting daily Miralax
If no BM in 24-48hrs after starting Miralax --> recommend then using a dose of magnesium citrate or milk of magnesia with a Senokot tablet to help alleviate post operative constipation as long as there is no nausea/vomiting and passing gas.
Resume all preoperative medications as prescribed, unless directed otherwise.
Do not drive or drink alcohol for 24 hrs after having anesthesia or while taking narcotic pain medications.
Resume regular daily light activities, such as walking, standing and going up/down stairs as tolerated within 24hrs of surgery.� Please refrain from lifting over 20 lbs or strenuous exercise until postoperative follow up visit &/or approximately
3-4 weeks.�
Call the office with a fever above 101� F, nausea with vomiting, severe abdominal pain, yellowing of skin or eyes, spreading redness and drainage from incision sites or with any concerns/questions.
If not arranged prior to surgery, please call the office to schedule or confirm your 10-14 day postoperative surgical follow-up office visit with Dr. Arrieta.
Instructions: Yeison-Queen Drain, How to Keep Track of Your Drainage
Referrals:
Franc Liang MD [Active] - in four to six weeks
Angelito Arrieta MD [Active] - in two weeks
Prescriptions:
New
acetaminophen 325 mg tablet
650 mg PO Q4HPRN PRN (Reason: mild pain) Qty: 1 0RF
ibuprofen 200 mg tablet
400 - 600 mg PO Q6HPRN PRN (Reason: moderate pain) Qty: 1 0RF
oxycodone 5 mg tablet
5 mg PO Q4HPRN PRN (Reason: breakthrough/severe pain) Qty: 15 0RF
Continued
lisinopril 10 mg Tablet
10 mg PO DAILY
albuterol sulfate [ProAir HFA] 90 mcg/actuation Hfa Aerosol Inhaler
2 puff INHALATION R QIDPRN PRN (Reason: sob)
Trelegy Ellipta 200-62.5-25 mcg Blister With Device
1 inh INHALATION R DAILY
atorvastatin 10 mg Tablet
10 mg PO DAILY
Discharge Orders:
Discharge Patient (As Directed); Ordered 11/02/23
Ordered By: Violet Gil
Discharge Date and Time
Discharge Date/Time: 11/02/23 12:12
Print Language: GHANAIAN
--- NOTE | 2023-11-02 11:33 | CM ---
MD entered order for discharge.
Pt ready for discharge.
Family Tila will drive him home.
[facility] set uo for dc.
PLAN Home with [facility]
--- NOTE | 2023-11-02 12:32 | CM ---
MD entered order for discharge.
Pt ready for discharge.
Family Tila will drive him home.
[facility] set uo for dc.
PLAN Home with [facility]
== END 2023-11-02 12:12 | disposition home health service (06) | DRG 415 ==
LOC: 4 EAST ACU 12:53
PROVIDERS: Internal Medicine Gastroenterology; Registered Nurse; Surgery; ADMITTING PHYSICIAN Surgery; CONSULT PHYSICIAN Internal Medicine Gastroenterology; FAMILY PHYSICIAN Family Medicine
PROC: 0FT40ZZ Resection of Gallbladder, Open Approach (ICD-10-PCS; 2023-10-25)
PROC: 8E0W4CZ Robotic Assisted Procedure of Trunk Region, Percutaneous Endoscopic Approach (ICD-10-PCS; 2023-10-25)
PROC: 0FJ44ZZ Inspection of Gallbladder, Percutaneous Endoscopic Approach (ICD-10-PCS; 2023-10-25)
PROC: 0F778DZ Dilation of Common Hepatic Duct with Intraluminal Device, Via Natural or Artificial Opening Endoscopic (ICD-10-PCS; 2023-10-26)
DX: K80.12 Calculus of gallbladder with acute and chronic cholecystitis without obstruction (principal); E87.1 Hypo-osmolality and hyponatremia; K82.A2 Perforation of gallbladder in cholecystitis; N17.9 Acute kidney failure, unspecified; K91.89 Other postprocedural complications and disorders of digestive system; Z68.41 Body mass index [BMI] 40.0-44.9, adult; D69.6 Thrombocytopenia, unspecified; K66.0 Peritoneal adhesions (postprocedural) (postinfection); K83.9 Disease of biliary tract, unspecified; Y83.8 Other surgical procedures as the cause of abnormal reaction of the patient, or of later complication, without mention of misadventure at the time of the procedure; E66.9 Obesity, unspecified
CPT/HCPCS: 88304; 36415; 74330; 76000; 80048; 80053; 80076; 82248; 85025; 85027; 86850; 86900; 86901; 94640; C1769; C2625

== ENCOUNTER 2023-11-06 19:48 | Emergency (ER) | payer OTHER, SELFPAY ==
[2023-11-06 19:59] VITALS: BP 99/82
--- NOTE | 2023-11-06 20:42 | ED.GENMED ---
History of Present Illness
General
Chief Complaint: Post Operative Problem(s)
Source: patient
Exam Limitations: none
Time Seen by Provider: 11/06/23 20:23
Nursing documentation reviewed up to this point in time: agreed with
Travel History
Have you had any contact with someone who has COVID-19?: No
Do you have any symptoms of coronavirus? Fever > 100 degrees, chills, cough, shortness of breath, sore throat, loss of taste or smell, muscle aches, or headache?: No
History of Present Illness
History of Present Illness:
Patient status post cholecystectomy, status post BERNABE drain after the procedure, presents to ED at the recommendation of on-call general surgeon, secondary to sudden onset of abdominal pain, along with 'lump' at the surgical site, along with blood
noted in his BERNABE drain this morning. Subsequently, patient was evaluated by visiting nurse, who was able to 'stretch out' the BERNABE drain and lump subsequently resolved, as well as resolution of pain. Denies fever or chills. Denies nausea or
vomiting. Patient has been eating well since has been home.
Review of Systems
Review of Systems
Allergies reviewed?: Yes
All Other Systems: ROS reviewed and negative except as documented in HPI and ROS
Constitutional: Reports no symptoms; Denies fever or chills
ABD/GI: Reports abdominal pain; Denies nausea or vomiting
Musculoskeletal: Reports no symptoms
Skin: Reports no symptoms
Neurological: Reports no symptoms
Phy Exam
Physical Exam
Physical Exam:
Physical Exam
General: no apparent distress, not acutely ill. afebrile.
Head: nc/at. eomi
Neck: supple. normal range of motion.
Abdomen: normal bowel sounds. J-P drain/catheter noted over right side abdomen with minimal surrounding erythema. no swelling. mildly tender over insertion site.
Neuro: alert and oriented. no focal neurological deficits
Skin: no rash
Psychiatric: well kept. interactive and cooperative
Extremities: no edema. no calf tenderness.
Course
Orders/Labs/Results
Orders:
Orders
11/06/23 20:59
Basic Metabolic Panel Urgent
Complete Blood Count/With Diff Urgent
Abnormal Lab Results
11/06/23
20:59
Plt Count 115 L D 10^3/uL
(130-400)
Absolute Neuts (auto) 7.0 H 10^3/uL
(1.4-6.5)
Absolute Lymphs (auto) 1.1 L 10^3/uL
(1.2-3.4)
Absolute Monos (auto) 0.8 H 10^3/uL
(0.1-0.6)
Neutrophils % 77.2 H %
(42.2-75.2)
Lymphocytes % 12.4 L %
(20.5-51.1)
Sodium 130 L mmol/L
(135-145)
Glucose 138 H mg/dl
(70-99)
Calcium 8.1 L mg/dl
(8.4-10.2)
11/06/23 20:59
11/06/23 20:59
Vital Signs
Initial and Last Documented VS:
Initial Vital Signs
Temp Pulse Resp BP Pulse Ox
98.1 F 102 18 99/82 98
11/06/23 19:59 11/06/23 19:59 11/06/23 19:59 11/06/23 19:59 11/06/23 19:59
Last Documented Vital Signs
Temp Pulse Resp BP Pulse Ox
98.1 F 102 18 99/82 98
11/06/23 19:59 11/06/23 19:59 11/06/23 19:59 11/06/23 19:59 11/06/23 19:59
MDM/Problems Addressed
MDM/Problems Addressed:
Discussed with (surgery) via tigertext, who also visualized BERNABE drain and surgical site. Recommends blood work and if normal, can be followed up as outpatient, without any further workup.
Blood work within normal limits. Pt otherwise remains afebrile, hemodynamically stable, and appears comfortable during observation. Patient will be discharged home in stable condition, to the care of his . Patient will be contacted by general
surgery office for an outpatient evaluation.
*Critical Care Note
Total Time (30-74mins, 75-104mins- exclusive of procedures): Not Applicable
ED Attending Note
-
Portions of this chart may have been created with voice recognition software.� Occasional wrong word or��sound alike� substitutions may have occurred due to the inherent limitations of voice recognition software.
Discharge Plan
Departure
Patient Disposition: Home (Routine Discharge)
Date of Disposition: 11/06/23
Time of Disposition: 21:41
Patient with high blood pressure during this ER visit?: No
Condition: Good
Discharge Problem:
Post-operative pain
Instructions: Postoperative Pain (DC)
Prescriptions:
No Action
lisinopril 10 mg Tablet
10 mg PO DAILY
albuterol sulfate [ProAir HFA] 90 mcg/actuation Hfa Aerosol Inhaler
2 puff INHALATION R QIDPRN PRN (Reason: sob)
Trelegy Ellipta 200-62.5-25 mcg Blister With Device
1 inh INHALATION R DAILY
atorvastatin 10 mg Tablet
10 mg PO DAILY
acetaminophen 325 mg tablet
650 mg PO Q4HPRN PRN (Reason: mild pain) Qty: 1 0RF
ibuprofen 200 mg tablet
400 - 600 mg PO Q6HPRN PRN (Reason: moderate pain) Qty: 1 0RF
oxycodone 5 mg tablet
5 mg PO Q4HPRN PRN (Reason: breakthrough/severe pain) Qty: 15 0RF
Referrals:
Angelito Arrieta MD [Active] -
UNKNOWN - PT DOES,NOT KNOW [Unknown Provider] -
Activity Restrictions/Additional Instructions:
As discussed, please follow-up with your surgeon for reevaluation as an outpatient.
Interventions
Interventions:
*Risk Screen - Suicide Last Done: 11/06/23 19:59
*General Assessment Last Done: 11/06/23 19:59
*Neglect/Abuse Screening Last Done: 11/06/23 19:59
ED- Fall Risk Assessment Last Done: 11/06/23 21:08
*ED COVID-19 Vaccine History Last Done: 11/06/23 21:51
*Nursing Disposition Last Done: 11/06/23 21:51
ED-Skin Assessment Last Done: 11/06/23 21:08
Discharge Date and Time
Discharge Date/Time: 11/06/23 21:51
Print Language: CZECH
[2023-11-06 21:05] LABS: % Basophils 0.2 % (0-2); % Eosinophils 1.4 % (0-6); % Immature Granulocytes 0.4 % (0-0.5); % Lymphocytes 12.4 % (20.5-51.1); % Monocytes 8.4 % (1.7-9.3); % Neutrophils 77.2 % (42.2-75.2); Absolute Eosinophils 0.1 10^3/uL (0-0.7); Absolute Lymphocytes 1.1 10^3/uL (1.2-3.4); Absolute Monocytes 0.8 10^3/uL (0.1-0.6); Hematocrit 42.5 % (39.0-52.0); Hemoglobin 14.3 g/dL (13.0-18.0); Mean Corp Hgb Conc. 33.6 g/dL (33.0-37.0); Mean Corpuscular Hgb 28.7 pg (27.0-31.0); Mean Corpuscular Volume 85.2 fL (80.0-94.0); Mean Platelet Volume 9.2 fL (7.4-10.4); Nucleated Red Blood Cells % 0 % (-); Platelet Count 115 10^3/uL (130-400); Red Blood Cell Count 4.99 10^6/uL (4.70-6.10); Red Cell Dist. Width 13.4 % (11.5-14.5); White Blood Cell Count 9.1 10^3/uL (4.8-10.8)
[2023-11-06 21:32] LABS: Blood Urea Nitrogen 14 mg/dl (9-20); Calcium 8.1 mg/dl (8.4-10.2); Carbon Dioxide 23 mmol/L (22-30); Chloride 102 mmol/L (98-107); Glucose 138 mg/dl (70-99); Potassium 3.9 mmol/L (3.5-5.1); Sodium 130 mmol/L (135-145); eGFR > 60.00
== END 2023-11-06 21:51 | disposition home or self-care (01) ==
LOC: EMR 19:48
PROVIDERS: EMERGENCY PHYSICIAN Emergency Medicine; FAMILY PHYSICIAN Family Medicine
DX: G89.18 Other acute postprocedural pain (principal); Z90.49 Acquired absence of other specified parts of digestive tract
CPT/HCPCS: 99283; 80048; 85025

== ENCOUNTER → 2023-11-12 07:21 | Outpatient (REF) | payer OTHER, SELFPAY | LOC: RAD 07:21 | PROVIDERS: ATTENDING PHYSICIAN Surgery; FAMILY PHYSICIAN Family Medicine | DX: Z90.49 Acquired absence of other specified parts of digestive tract (principal); K83.8 Other specified diseases of biliary tract | CPT/HCPCS: 78226; A9537 ==

== ENCOUNTER → 2023-11-13 11:52 | Outpatient (REF) | payer OTHER, SELFPAY ==
[2023-11-13 12:49] LABS: % Basophils 0.5 % (0-2); % Eosinophils 2.2 % (0-6); % Lymphocytes 13.6 % (20.5-51.1); % Monocytes 5.4 % (1.7-9.3); % Neutrophils 76.3 % (42.2-75.2); Absolute Basophils 0.1 10^3/uL (0-0.2); Absolute Eosinophils 0.3 10^3/uL (0-0.7); Absolute Immature Granulocytes 0.2 10^3/uL (0-0.05); Absolute Lymphocytes 1.6 10^3/uL (1.2-3.4); Absolute Monocytes 0.7 10^3/uL (0.1-0.6); Absolute Neutrophils 9.2 10^3/uL (1.4-6.5); Hematocrit 46.3 % (39.0-52.0); Hemoglobin 15.5 g/dL (13.0-18.0); Mean Corp Hgb Conc. 33.5 g/dL (33.0-37.0); Mean Corpuscular Hgb 27.8 pg (27.0-31.0); Mean Corpuscular Volume 83.1 fL (80.0-94.0); Mean Platelet Volume 8.9 fL (7.4-10.4); Nucleated Red Blood Cells % 0 % (-); Platelet Count 245 10^3/uL (130-400); Red Blood Cell Count 5.57 10^6/uL (4.70-6.10); Red Cell Dist. Width 13.1 % (11.5-14.5)
[2023-11-13 13:30] LABS: ALT (SGPT) 17 U/L (0-50); AST (SGOT) 24 U/L (17-59); Albumin 3.8 g/dl (3.5-5.0); Alkaline Phosphatase 120 U/L (38-126); Blood Urea Nitrogen 22 mg/dl (9-20); Calcium 9.1 mg/dl (8.4-10.2); Carbon Dioxide 24 mmol/L (22-30); Chloride 108 mmol/L (98-107); Glucose 107 mg/dl (70-99); Sodium 141 mmol/L (135-145); Total Bilirubin 0.5 mg/dl (0.2-1.3); Total Protein 7.1 g/dl (6.3-8.2); eGFR 55.43
== END ==
LOC: REG 11:52
PROVIDERS: ATTENDING PHYSICIAN Surgery; FAMILY PHYSICIAN Family Medicine
DX: Z09 Encounter for follow-up examination after completed treatment for conditions other than malignant neoplasm (principal)
CPT/HCPCS: 36415; 80053; 85025

== ENCOUNTER → 2023-11-21 12:57 | Outpatient (REF) | payer OTHER, SELFPAY ==
[2023-11-21 14:25] LABS: % Basophils 0.5 % (0-2); % Eosinophils 2.3 % (0-6); % Immature Granulocytes 1.7 % (0-0.5); % Lymphocytes 16.9 % (20.5-51.1); % Neutrophils 72.6 % (42.2-75.2); Absolute Basophils 0.1 10^3/uL (0-0.2); Absolute Eosinophils 0.3 10^3/uL (0-0.7); Absolute Immature Granulocytes 0.2 10^3/uL (0-0.05); Absolute Lymphocytes 2.3 10^3/uL (1.2-3.4); Absolute Monocytes 0.8 10^3/uL (0.1-0.6); Hematocrit 44.9 % (39.0-52.0); Hemoglobin 14.7 g/dL (13.0-18.0); Mean Corp Hgb Conc. 32.7 g/dL (33.0-37.0); Mean Corpuscular Hgb 27.7 pg (27.0-31.0); Mean Corpuscular Volume 84.7 fL (80.0-94.0); Mean Platelet Volume 9.5 fL (7.4-10.4); Nucleated Red Blood Cells % 0 % (-); Platelet Count 175 10^3/uL (130-400); Red Cell Dist. Width 13.2 % (11.5-14.5); White Blood Cell Count 13.7 10^3/uL (4.8-10.8)
[2023-11-21 15:05] LABS: ALT (SGPT) 20 U/L (0-50); AST (SGOT) 28 U/L (17-59); Albumin 3.9 g/dl (3.5-5.0); Alkaline Phosphatase 122 U/L (38-126); Blood Urea Nitrogen 25 mg/dl (9-20); Calcium 9.1 mg/dl (8.4-10.2); Carbon Dioxide 22 mmol/L (22-30); Chloride 105 mmol/L (98-107); Glucose 91 mg/dl (70-99); Potassium 4.5 mmol/L (3.5-5.1); Sodium 138 mmol/L (135-145); Total Bilirubin 0.6 mg/dl (0.2-1.3); Total Protein 7.2 g/dl (6.3-8.2); eGFR > 60.00
== END ==
LOC: RAD 12:57
PROVIDERS: ATTENDING PHYSICIAN Surgery; FAMILY PHYSICIAN Family Medicine
DX: Z90.49 Acquired absence of other specified parts of digestive tract (principal); K91.89 Other postprocedural complications and disorders of digestive system; K83.8 Other specified diseases of biliary tract
CPT/HCPCS: 36415; 74160; 80053; 85025; Q9967

== ENCOUNTER 2024-01-11 07:59 | Day surgery (SDC) | payer OTHER, SELFPAY ==
[2024-01-11 10:24] VITALS: BMI 38.3
[2024-01-11 10:33] VITALS: BMI 38.3
[2024-01-11 10:34] VITALS: BP 148/89
[2024-01-11 12:56] VITALS: BP 120/73
[2024-01-11 13:00] VITALS: BP 118/91
[2024-01-11 13:15] VITALS: BP 131/88
[2024-01-11 13:22] VITALS: BP 139/72
== END 2024-01-11 13:41 | disposition home or self-care (01) ==
LOC: GI 07:59
PROVIDERS: ATTENDING PHYSICIAN Internal Medicine Gastroenterology
DX: Z46.59 Encounter for fitting and adjustment of other gastrointestinal appliance and device (principal); K83.8 Other specified diseases of biliary tract; Z96.89 Presence of other specified functional implants
CPT/HCPCS: 43275; 74330; 76000; C1726; C1769

== ENCOUNTER 2024-06-06 07:43 | Emergency (ER) | payer OTHER, SELFPAY ==
[2024-06-06 07:44] VITALS: BP 186/93
--- NOTE | 2024-06-06 09:21 | ED.GENMED ---
History of Present Illness
General
Chief Complaint: Skin Problem
Time Seen by Provider: 06/06/24 08:54
History of Present Illness
History of Present Illness:
Patient is a 69-year-old male with past medical history of asthma, COPD, hypertension, hyperlipidemia, prostate cancer, and history of prior cholecystectomy, here today for evaluation of approximately 4 days of an area of swelling he noticed along
his left buttock x 4 days. No pain. He has noted drainage and bleeding. No fevers. No history of MRSA. He does frequently drive for long periods of time throughout the day.
Review of Systems
Review of Systems
All Other Systems: ROS reviewed and negative except as documented in HPI and ROS
Phy Exam
Physical Exam
Physical Exam:
GENERAL: Alert , in no apparent distress
EYE: pupils equal and reactive
NECK: Supple
NEUROLOGICAL: Alert and oriented, no focal neuro deficits
SKIN: Warm and dry, there is a pustular open lesion along the left upper middle buttocks region with a moderate amount of surrounding erythema and induration, area is firm, there is no fluctuance, there is a mild amount of bloody drainage noted,
there is minimal to no tenderness noted
MUSCULOSKELETAL: No edema, well perfused.
PSYCH: Normal and appropriate interaction.
Course
Vital Signs
Initial and Last Documented VS:
Initial Vital Signs
Temp Pulse Resp BP Pulse Ox
98.3 F 77 16 186/93 99
06/06/24 07:44 06/06/24 07:44 06/06/24 07:44 06/06/24 07:44 06/06/24 07:44
Last Documented Vital Signs
Temp Pulse Resp BP Pulse Ox
98.3 F 70 16 146/83 96
06/06/24 07:44 06/06/24 09:46 06/06/24 07:44 06/06/24 09:46 06/06/24 09:46
MDM/Problems Addressed
Differential Diagnosis Includes:
Patient is a 69-year-old male with past medical history of asthma, COPD, hypertension, hyperlipidemia, prostate cancer, and history of prior cholecystectomy, here today for evaluation of approximately 4 days of an area of swelling he noticed along
his left buttock x 4 days. Overall, patient appears very well. Vital signs remarkable for a moderately elevated blood pressure. Patient made aware of this. Physical examination described above. On exam, the patient has a pustular open lesion
along the left upper middle buttocks region with a moderate amount of surrounding erythema and induration. Area is firm. There is no fluctuance. There is a mild amount of bloody drainage noted. There is minimal to no tenderness noted.
Symptoms/findings consistent with a superficial soft tissue skin infection. Low suspicion for abscess given firm texture and lack of fluctuance. A bedside ultrasound was performed which reveals no evidence of fluid collection present. Discussed
treatment options with patient including conservative measures versus incision and drainage. Patient would prefer conservative measures and I do think this is reasonable given lack of findings to suggest abscess at this time. We will cover patient
with antibiotics with mupirocin and Bactrim. Will recommend warm compresses 3-4 times per day for 15 minutes each. Return precautions given for worsening symptoms. Patient made aware of his elevated blood pressure and recommended to
follow/monitor this with his doctor. All questions answered. Stable for discharge.
*Critical Care Note
Total Time (30-74mins, 75-104mins- exclusive of procedures): Not Applicable
ED Attending Note
-
Portions of this chart may have been created with voice recognition software.� Occasional wrong word or��sound alike� substitutions may have occurred due to the inherent limitations of voice recognition software.
Discharge Plan
Departure
Patient Disposition: Home (Routine Discharge)
Date of Disposition: 06/06/24
Time of Disposition: 09:24
Patient with high blood pressure during this ER visit?: Yes
Condition: Good
Covid-19: Not Applicable
Discharge Problem:
Cellulitis of left buttock, Elevated blood pressure reading
Instructions: Cellulitis (Skin Infection), Adult (DC), High Blood Pressure ED
Prescriptions:
New
sulfamethoxazole-trimethoprim [Bactrim DS] 800-160 mg tablet
1 tab PO Q12H 7 Days Qty: 14 0RF
mupirocin 2 % ointment
1 applic topical TID 7 Days Qty: 50 0RF
No Action
lisinopril 10 mg Tablet
10 mg PO DAILY
albuterol sulfate [ProAir HFA] 90 mcg/actuation Hfa Aerosol Inhaler
2 puff INHALATION R QIDPRN PRN (Reason: sob)
Trelegy Ellipta 200-62.5-25 mcg Blister With Device
1 inh INHALATION R DAILY
atorvastatin 10 mg Tablet
10 mg PO DAILY
acetaminophen 325 mg tablet
650 mg PO Q4HPRN PRN (Reason: mild pain) Qty: 1 0RF
ibuprofen 200 mg tablet
400 - 600 mg PO Q6HPRN PRN (Reason: moderate pain) Qty: 1 0RF
meloxicam 15 mg Tablet
15 mg PO DAILY
Activity Restrictions/Additional Instructions:
You were seen today for evaluation of an infection of the skin along your left buttock region.
We are starting you on oral antibiotics with a medication called mupirocin which is a topical ointment to apply as directed every 8 hours after each warm compress. We are also starting you on an oral antibiotic called Bactrim to take as directed.
Apply warm compresses to the area 3-4x per day for 10 to 15 minutes each.
Follow-up with your doctor within the next 3 to 5 days for close reevaluation.
Return for any new, worsening, or concerning symptoms
Interventions
Interventions:
*Risk Screen - Suicide Last Done: 06/06/24 07:46
*General Assessment Last Done: 06/06/24 09:48
*Neglect/Abuse Screening Last Done: 06/06/24 07:46
*ED COVID-19 Vaccine History Last Done: 06/06/24 09:48
Discharge Date and Time
Print Language: SINHALA
[2024-06-06 09:46] VITALS: BP 146/83
[2024-06-06 10:29] VITALS: BP 146/83
== END 2024-06-06 10:31 | disposition home or self-care (01) ==
LOC: EMR 07:43
PROVIDERS: EMERGENCY PHYSICIAN Emergency Medicine; FAMILY PHYSICIAN Family Medicine
DX: L03.317 Cellulitis of buttock (principal); I10 Essential (primary) hypertension; J44.89 Other specified chronic obstructive pulmonary disease; E78.00 Pure hypercholesterolemia, unspecified; Z85.46 Personal history of malignant neoplasm of prostate; Z90.49 Acquired absence of other specified parts of digestive tract
CPT/HCPCS: 99282